=== PATIENT | female | born 1965 | race Caucasian/White ===

== ENCOUNTER 2016-10-02 08:44 | Emergency (ER) | payer MEDICARE, OTHER ==
[2016-10-02 09:02] VITALS: BP 119/68
[2016-10-02] MEDS ORDERED: MORPHINE SULFATE 4 MG/ML SYRG ONE (09:29)
[2016-10-02 09:30] LABS: Hematocrit 39.6 % (37.0-47.0); Hemoglobin 13.2 gm/dL (12.5-16.0); Mean Cell Volume 90.2 fl (78-100); Mean Corpuscular Hemoglobin 30.1 pg (27-31); Mean Corpuscular Hgb Conc 33.3 g/dl (32-36); Mean Platelet Volume 10.1 fl (6.0-9.5); Neutrophil # 4.2 K/mm3 (1.3-6.0); Platelet Count 287 K/mm3 (150-450); Red Blood Count 4.39 M/mm3 (4.2-5.4); Red Cell Distribution Width 12.9 % (11.5-14.0); White Blood Count 6.9 K/mm3 (4.0-10.5)
[2016-10-02] MEDS: MORPHINE SULFATE 4 MG/ML SYRG IM ONE (09:32)
[2016-10-02 09:43] LABS: Albumin * 3.9 gm/dl (3.4-5.0); BUN/Creatinine Ratio 16.7 (9.0-21.6); Bilirubin, Total 0.3 mg/dL (0.0-1.1); Ca. Corrected For Albumin 8.8 mg/dL (8.4-10.2); Carbon Dioxide 29.6 mmol/L (24-32.6); Potassium 3.6 mmol/L (3.4-4.6); Total Protein 8.2 gm/dL (6.2-8.2)
--- NOTE | 2016-10-02 09:58 | ERNOTE ---
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 methocarbamol Adverse Reaction (Mild, Verified 10/02/16 09:02) RASH Home Medications: HOME MEDICATIONS Venlafaxine HCl [Effexor Xr] 150 mg PO DAILY 01/02/14 [Last Taken 03/05/14] Pantoprazole Sodium [Protonix] 40 mg PO DAILY 06/03/15 [Last Taken Unknown] Torsemide [Demadex] 40 mg PO DAILY 06/03/15 [Last Taken Unknown] Aspirin 81 mg PO DAILY 01/03/16 [Last Taken Unknown] Atorvastatin Calcium [Lipitor] 40 mg PO DAILY 01/03/16 [Last Taken Unknown] HYDROcodone/ACETAMINOPHEN [[place] 5-325] 1 tab PO Q4H PRN 01/03/16 [Last Taken Unknown] Levothyroxine Sodium [Synthroid] 88 mcg PO DAILY 01/03/16 [Last Taken Unknown] hydrOXYzine PAMOATE [Hydroxyzine Pamoate] 100 mg PO TID 06/25/16 [Last Taken Unknown] Lurasidone HCl [Latuda] 20 mg PO DAILY 07/29/16 [Last Taken Unknown] Narrative: Patient presents to the ED for bilateral thigh pain. She relates this has been increased over the last 2 days. SHe states chronic back pain. She states her thighs have not hurt like this before but then tells me she had x-rays for this pain at another hospital when I discuss x-rays with her. He denies pain below the knees. Denies acute focal N/T/W. Feels weak all over. No trauma, no fever. No abdominal pain, no vomiting. No loss of bowel or bladder control. No CP or SOB. Denies new medications. Timing: Reports: constant Quality/Severity: Reports: severe Location of pain: Reports: other - low back and milateral upper thighs. Activities at Onset: Reports: none Recent Injury?: Reports: no Possible Precipitating Factor: Reports: none Modifying Factors - (Worsens): Reports: other - nothign clearly worsens it Associated Symptoms: Reports: none - no clear weakness in the legs. Denies: fever/chills, constipation/incontinence, problems urinating Review of Systems - Review of Systems Constitutional: Absent: fever ENT: Present: no symptoms reported Respiratory: Absent: shortness of breath Cardiology: Absent: chest pain Gastrointestinal/Abdominal: Absent: abdominal pain Genitourinary: Absent: dysuria Musculoskeletal: Present: back pain Skin: Absent: rash Neurological: Absent: weakness - Patient's Past Medical History Patient History - Medical: Anxiety, Depression, GERD, Hypothyroidism Patient History - Cardiac/Respiratory: Valvular Heart Disease Patient History - Cancer: No Hx of Cancer Patient History - Surgical Procedures: Hysterectomy, Total Hip Replacement, T & A, Other Patient History - Other: None LMP (females 10-50): other - Family History Father Family History - Medical: Family History - Cardiac/Respiratory: COPD, Other Mother Family History - Medical: Family History - Cardiac/Respiratory: COPD, CVA/Stroke, TIA, Other - Social History Living Situations: other Does anyone smoke in the home?: Yes Smoking Status: Current every day smoker Have you smoked in the past 12 months: Yes Do you dip or chew tobacco: No Patient requests Smoking Cessation Consult: No Initiate information on Smoking Cessation: No Alcohol Use: none Drug Use: none - Immunizations Immunizations Up to Date: Yes Hx Pneumococcal Vaccination: Yes History of Influenza Vaccine: Yes Physical Exam - Physical Exam General Appearance: Present: alert, no apparent distress Eye Exam: Normal inspection: bilateral, PERRL: bilateral Ears, Nose, Throat: Present: normal ENT inspection Neck: Present: normal inspection Respiratory: Present: no respiratory distress Cardiovascular/Chest: Present: regular rate, rhythm, normal peripheral pulses Gastrointestinal/Abdominal: Present: normal bowel sounds, nontender, nondistended, soft Back Exam: Present: other - muscular tendenress bilateral low back paraspinal musculature. No vertebral tenderness.. Absent: CVA tenderness (R), CVA tenderness (L) Extremity Exam: Present: other - mild anterior thigh tenderness. No compartment syndrome. 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 Full LE strength and sensation. Patellar tendon reflexes equal and symmetric.. Absent: motor weakness Skin Exam: Absent: skin rash ED Progress - Results and Orders Patient's Lab Results:: I have reviewed the patient's lab results. - Vital Signs Patient's Vital Signs:: I have reviewed the patient's vital signs. Vital Signs: Vital Signs 10/02/16 08:53 Temperature 36.5 C Pulse Rate 101 H Respiratory 20 Rate Blood Pressure 119/68 O2 Sat by Pulse 97 Oximetry - Progress/Reassessment Chief Complaint: Back Pain Progress Note-Subjective: 10/02/16 09:56 patient left AMA while I was in with another patient. Labs pending. Also I did not get a chance for a rectal exam. No clear evidence of cauda equina syndrome or neuro deficit, no clear etiology based on initial eval. AMA Departure Clinical Impression: Leg pain, anterior - Departure Disposition: Against medical advice Condition: Stable Additional Instructions: You are leaving Against Medical Advice. Please return if you change your mind about completing your evaluation. See your primary doctor as soon as possible.
== END 2016-10-02 09:47 | disposition left against medical advice (07) ==
LOC: ER 08:44
DX: M79.652 Pain in left thigh (principal); M79.651 Pain in right thigh; Z90.710 Acquired absence of both cervix and uterus; Z96.649 Presence of unspecified artificial hip joint

== ENCOUNTER 2016-10-03 21:49 | Emergency (ER) | payer MEDICARE, OTHER ==
[2016-10-03 22:19] VITALS: BP 119/92
[2016-10-03] MEDS ORDERED: METHYLPREDNISOLONE ACETATE 80 MG/ML VIAL IM ONE (23:38)
[2016-10-03] MEDS ORDERED: DEXAMETHASONE SOD PHOSPHATE 10 MG/ML VIAL IM ONE (23:38)
--- NOTE | 2016-10-03 23:39 | ERNOTE ---
Back Pain ER HPI Presenting Symptoms: hx chronic back pain Time Seen by Provider: 10/03/16 23:09 Source: patient Immunizations: IMMUNIZATION HX Immunizations Up to Date Yes History of Influenza Vaccine Yes Hx Pneumococcal Vaccination Yes Allergies/Adverse Reactions: Allergies Sulfa (Sulfonamide Antibiotics) Allergy (Intermediate, Verified 10/03/16 22:19) FACE SWELLING Iodinated Contrast Media - IV Dye Adverse Reaction (Intermediate, Verified 10/03 22:19) SEVERE ITCHING ibuprofen Adverse Reaction (Mild, Verified 10/03/16 22:19) Other Pt states that chronic specialist told her not to take these because it leads to heart disease. methocarbamol Adverse Reaction (Mild, Verified 10/03/16 22:19) RASH Home Medications: HOME MEDICATIONS Venlafaxine HCl [Effexor Xr] 150 mg PO DAILY 01/02/14 [Last Taken 03/05/14] Pantoprazole Sodium [Protonix] 40 mg PO DAILY 06/03/15 [Last Taken Unknown] Torsemide [Demadex] 40 mg PO DAILY 06/03/15 [Last Taken Unknown] Aspirin 81 mg PO DAILY 01/03/16 [Last Taken Unknown] Atorvastatin Calcium [Lipitor] 40 mg PO DAILY 01/03/16 [Last Taken Unknown] Levothyroxine Sodium [Synthroid] 88 mcg PO DAILY 01/03/16 [Last Taken Unknown] hydrOXYzine PAMOATE [Hydroxyzine Pamoate] 100 mg PO TID 06/25/16 [Last Taken Unknown] Narrative: Pt states she has chronic back pain. Tonight she had worsening of her back pain while she was lying down. She states that she is not on any pain medications right now Timing: Reports: getting worse - tonight Quality/Severity: Reports: moderate, aching Location of pain: Reports: lower back, radiating to rt thigh/leg, radiating to lf thigh/leg - anterior to the knee bilateral Activities at Onset: Reports: other - lying down and states that she turned over and the twisting caused her pain Possible Precipitating Factor: Reports: none - twisting Modifying Factors - (Improves): Reports: nothing Modifying Factors - (Worsens): Reports: movement to left Associated Symptoms: Denies: problems urinating, difficulty walking Review of Systems - Review of Systems Constitutional: Present: no symptoms reported EYE: Present: no symptoms reported ENT: Present: no symptoms reported Respiratory: Present: no symptoms reported Cardiology: Present: no symptoms reported Gastrointestinal/Abdominal: Present: no symptoms reported Musculoskeletal: Present: See HPI Skin: Present: no symptoms reported Neurological: Present: tingling - Patient's Past Medical History Patient History - Medical: Anxiety, Chronic Pain, Depression, GERD, Hypothyroidism Patient History - Cardiac/Respiratory: Valvular Heart Disease Patient History - Cancer: No Hx of Cancer Patient History - Surgical Procedures: Hysterectomy, Total Hip Replacement, T & A, Other Patient History - Other: None - Family History Father Family History - Medical: Family History - Cardiac/Respiratory: COPD, Other Mother Family History - Medical: Family History - Cardiac/Respiratory: COPD, CVA/Stroke, TIA, Other - Social History Living Situations: home Does anyone smoke in the home?: Yes Smoking Status: Current every day smoker Alcohol Use: none Drug Use: none - Immunizations Immunizations Up to Date: Yes Hx Pneumococcal Vaccination: Yes History of Influenza Vaccine: Yes Physical Exam - Physical Exam General Appearance: Present: wd/wn, alert, no apparent distress Neck: Present: normal inspection, nontender, supple Respiratory: Present: no respiratory distress, no accessory muscle use Back Exam: Present: muscle spasm - left paraspinal muscles. Absent: CVA tenderness (R), CVA tenderness (L), vertebral tenderness Extremity Exam: Present: normal inspection, non-tender, no edema, normal range of motion Neurological Exam: Present: alert, oriented, normal mood/affect, no motor/ sensory deficits DTR: N=norm/NB=norm/brisk/A=abs/DD=dull/dimin/HC=hyperactive: Knee (R): Normal, Knee (L): Normal, Ankle (R): Normal, Ankle (L): Normal Skin Exam: Present: normal color, warm/dry ED Progress - Vital Signs Vital Signs: Vital Signs 10/03/16 22:15 Temperature 36.5 C Pulse Rate 70 Respiratory 18 Rate Blood Pressure 119/92 O2 Sat by Pulse 98 Oximetry - Progress/Reassessment Chief Complaint: Back Pain Departure Clinical Impression: Low back pain associated with a spinal disorder other than radiculopathy or spinal stenosis - Departure Disposition: Home Follow Up Needed Condition: Good Instructions: Facet Syndrome Additional Instructions: See your regular doctor as soon as possible. 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
[2016-10-03] MEDS ORDERED: METHYLPREDNISOLONE SOD SUCC/PF 40 MG/ML VIAL ONE (23:58)
[2016-10-03] MEDS ORDERED: DEXAMETHASONE SOD PHOSPHATE 10 MG/ML VIAL ONE (23:58)
[2016-10-04] MEDS ORDERED: METHYLPREDNISOLONE ACETATE 80 MG/ML VIAL ONE (00:02)
== END 2016-10-04 00:30 | disposition home or self-care (01) ==
LOC: ER 21:49
DX: M54.5 Low back pain (principal); Z72.0 Tobacco use

== ENCOUNTER 2016-10-29 20:36 | Emergency (ER) | payer MEDICARE, OTHER ==
[2016-10-29 20:44] VITALS: BP 133/75
[2016-10-29] MEDS ORDERED: KETOROLAC TROMETHAMINE 30 MG/ML VIAL IM ONE (20:54)
[2016-10-29] MEDS ORDERED: oxyCODONE HCL/ACETAMINOPHEN 1 TAB TABLET PO ONE (20:54)
[2016-10-29] MEDS ORDERED: ORPHENADRINE CITRATE 30 MG/ML VIAL IM ONE (20:54)
[2016-10-29] MEDS ORDERED: oxyCODONE HCL/ACETAMINOPHEN 1 TAB TABLET ONE (20:59)
[2016-10-29] MEDS ORDERED: KETOROLAC TROMETHAMINE 30 MG/ML VIAL ONE (21:00)
[2016-10-29] MEDS ORDERED: ORPHENADRINE CITRATE 30 MG/ML VIAL ONE (21:00)
--- OUTSIDE RECORDS SUMMARY | 2016-10-29 21:02 | XMS REPORT | Continuity of Care Document ---
:1965 Author Organization [facility] ([facility]) Address [place] [address] Phone [phone] Care Team Providers Name Role Phone Ana Sanches Primary Care Provider [phone] Source Comments This disclosure is being made pursuant to the Care Everywhere program, applicable federal and state laws, and may not contain all informaitonavailable regarding this patient.[facility] ([facility]) Active Allergies and Adverse Reactions Allergen Noted Date Severity Reactions Comments Iodinated Contrast Media - Oral And Iv Dye 02/13/2014 Rash Sulfa (Sulfonamide Antibiotics) 02/13/2014 Angioedema Current Medications Prescription Sig. Disp. Refills Start Date End Date Status aspirin 81 mg EC tablet Take 81 mg by Active mouth daily. venlafaxine 150 mg XR Take 75 mg by Active tablet mouth daily. pantoprazole 40 mg EC Take 40 mg by Active tablet mouth daily. FLUTICASONE 50 05/14/2014 Active mcg/Actuation nasal spray torsemide 10 mg tablet Take 10 mg by Active mouth daily. HYDROcodone-acetaminophe Take 1 Tab by Active n 5-325 mg per tablet mouth every 4 hours as needed. levothyroxine 88 mcg 11 11/05/2015 Active tablet lisinopril 5 mg tablet Take 5 mg by 11/03/2015 Active mouth daily. atorvastatin 40 mg Take 40 mg by 11 07/19/2016 Active tablet mouth daily. benztropine 0.5 mg Take 0.5 mg by 1 08/01/2016 Active tablet mouth 3 times daily. busPIRone 10 mg tablet Take 10 mg by 1 08/01/2016 Active mouth. hydrOXYzine pamoate 50 Take 50 mg by 1 08/01/2016 Active mg capsule mouth 3 times daily. metoPROLol succinate 25 Take 1 tablet 90 tablet 3 08/24/2016 Active mg XL tablet (25 mg total) by mouth daily. Active Problems Problem Noted Date Nonrheumatic aortic valve insufficiency 08/24/2016 Overview: mild Cardiomyopathy 08/09/2016 Hypothyroidism 11/10/2015 S/P radiofrequency ablation operation for arrhythmia 10/14/2014 Overview: PVC ablation in 10/2014 Chronic systolic heart failure 09/16/2014 Overview: Likely secondary to frequent PVC's Essential hypertension 09/16/2014 Hyperlipidemia 09/16/2014 PVC (premature ventricular contraction) 09/16/2014 Hip pain 02/13/2014 Resolved Problems Problem Noted Date Resolved Date Palpitations 09/30/2014 11/10/2015 Whole body pain 07/21/2014 09/16/2014 Knee pain 02/13/2014 11/10/2015 Most Recent Encounters Date Type Specialty Providers Description 09/15/2016 Telephone Heart and Vascular Lorraine Seals, Chief Comp: Results [facility] 09/03/2016 Telephone Heart and Vascular Emy Olivera MD 08/24/2016 Office Visit Heart and Vascular Vitor Feng Dx: Cardiomyopathy MD Shira (Primary Dx) 08/23/2016 Office Visit Heart and Vascular Crow Benitez, Dx: Cardiomyopathy (Primary Dx) Lorraine Seals, [facility] 08/15/2016 Telephone Cardiac Rehabilitation Vitor Feng Chief Comp: MD Shira Appointment Info 08/10/2016 Office Visit Heart and Vascular Aaron Almodovar Dx: Cardiomyopathy MD Martha (Primary Dx) Vitor Feng MD Immunizations Name Dates Previously Given Next Due Influenza, unspecified 07/14/2014 Pneumococcal, unspecified 06/13/2014 Social History Tobacco Use Types Packs/Day Years Used Date Light Tobacco Smoker Cigarettes 0.25 Smokeless Tobacco: Current User Alcohol Use Drinks/Week oz/Week Comments No Last Filed Vital Signs Vital Sign Reading Time Taken Blood Pressure 140/76 08/24/2016 2:21 PM 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 Pulse 68 08/24/2016 2:21 PM 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 Temperature 37 C (98.6 F) 10/15/2014 7:53 AM 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 Respiratory Rate 16 11/10/2015 10:38 AM 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 Height 1.651 m (5' 5") 08/10/2016 12:16 PM 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 Weight 71.215 kg (157 lb) 08/24/2016 2:21 PM 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 Body Mass Index 26.13 08/24/2016 2:21 PM 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 Oxygen Saturation 98% 11/10/2015 10:38 AM 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 Plan of Care Date Type Specialty Providers Description 12/28/2016 Appointment Heart and Vascular Vitor Feng, Chief Comp: Patient MD Reported Reason For [address] [place] [address] [phone] (Fax) Health Maintenance Due Date Last Done Comments HCV Screening 1965 Hepatitis B Vaccine (1 of 3 - Primary Series) 1965 Tdap Vaccine 1975 Lipid Disorder Screening 1982 MMR Vaccine 1982 Td Vaccine 1982 Pneumococcal Vaccine (1 of 1 - PPSV23) 1983 Cervical Cancer Screening 1994 Mammogram 2004 Colonoscopy 2014 Influenza Vaccine: Seasonal (#1) 04/04/2016 07/14/2014 Results from Last 3 Months Not on file
--- NOTE | 2016-10-29 21:09 | ERNOTE ---
Lower Extremity HPI - Narrative Date of Service: 10/29/16 - General Lower Extremities Pain: leg: bilateral - Pain on both legs since 3 days ago. Time Seen by Provider: 10/29/16 20:40 Source: patient Exam Limitations: no limitations - Immun/Allergies/Home Medications Immunizations: IMMUNIZATION HX Immunizations Up to Date Yes History of Influenza Vaccine Yes Hx Pneumococcal Vaccination Yes Allergies/Adverse Reactions: Allergies Allergy/AdvReac Type Severity Reaction Status Date / Time Sulfa (Sulfonamide Allergy Intermediate FACE Verified 10/03/16 22:19 Antibiotics) SWELLING Iodinated Contrast Media - AdvReac Intermediate SEVERE Verified 10/03/16 22:19 IV Dye ITCHING ibuprofen AdvReac Mild Other Verified 10/03/16 22:19 methocarbamol AdvReac Mild RASH Verified 10/03/16 22:19 Home Medications: HOME MEDICATIONS Venlafaxine HCl [Effexor Xr] 150 mg PO DAILY 01/02/14 [Last Taken 03/05/14] Pantoprazole Sodium [Protonix] 40 mg PO DAILY 06/03/15 [Last Taken Unknown] Torsemide [Demadex] 40 mg PO DAILY 06/03/15 [Last Taken Unknown] Aspirin 81 mg PO DAILY 01/03/16 [Last Taken Unknown] Atorvastatin Calcium [Lipitor] 40 mg PO DAILY 01/03/16 [Last Taken Unknown] Levothyroxine Sodium [Synthroid] 88 mcg PO DAILY 01/03/16 [Last Taken Unknown] hydrOXYzine PAMOATE [Hydroxyzine Pamoate] 100 mg PO TID 06/25/16 [Last Taken Unknown] ALPRAZolam [Xanax] 1 mg PO TID 10/29/16 [Last Taken Unknown] Orphenadrine Citrate [Norflex] 100 mg PO BID #10 tablet.sa 10/29/16 [Last Taken Unknown] oxyCODONE HCL/ACETAMINOPHEN [Percocet 5 MG/325 MG] 1 tab PO Q8H #5 tablet [Last Taken Unknown] - History of Present Illness Narrative: Patient comes due to the need of pain control of a pain that starts on the lower back and radiates to the lower legs. Patient has Hx of Back Surgery and Back Problems. Patient with no Hx of recent Tx. Patient denied any fall. Patient reported no documented fever, but believe a bronchitis is coming up. Patient with no loss of sphincters controls and no LOC. Occurred: other - 3 days ago Method of Injury: Reports: unknown. Denies: fell, twisted, direct blow, fainted , motor vehicle accident, assault, burn, incised, sports injury, no apparent injury Reason for Fall: Reports: other - no fall reported Loss of Consciousness: Reports: no loss of consciousness Modifying Factors - (Improves): Reports: other - nothing Modifying Factors - (Worsens): Reports: movement Associated Symptoms: Reports: weakness. Denies: snapping, popping sensation, dizzy/light headedness, headache, sensory loss, chest pain, vomiting/diarrhea, bowel/bladder problems, other injuries - on the lower legs area Other Injuries: Reports: none Subsequent Symptoms: Reports: numbness. Denies: motor loss, bowel/bladder problem Prior Treament: Reports: recently seen - Patient has a back specialist Review of Systems - Review of Systems Constitutional: Present: fever, malaise. Absent: diaphoresis, weakness, fatigue , weight loss EYE: Present: no symptoms reported ENT: Present: no symptoms reported Respiratory: Present: cough. Absent: shortness of breath Cardiology: Present: no symptoms reported Gastrointestinal/Abdominal: Present: no symptoms reported Genitourinary: Present: no symptoms reported Musculoskeletal: Present: muscle pain, other - Back Pain that radiates to the lower legs area. Skin: Present: no symptoms reported Neurological: Present: no symptoms reported Endocrine: Present: no symptoms reported Hematologic/Lymphatic: Present: no symptoms reported Psych: Present: anxiety. Absent: depressed All Other Systems: All systems neg except as marked - Patient's Past Medical History Patient History - Medical: Anxiety, Bipolar, Chronic Pain, Depression, GERD, Hypothyroidism, Other Patient History - Cardiac/Respiratory: Valvular Heart Disease Patient History - Cancer: No Hx of Cancer Patient History - Surgical Procedures: Hysterectomy, Total Hip Replacement, T & A, Other Patient History - Other: None - Family History Father Family History - Medical: Family History - Cardiac/Respiratory: COPD, Other Mother Family History - Medical: Family History - Cardiac/Respiratory: COPD, CVA/Stroke, TIA, Other - Social History Living Situations: home Abuse History: No History of abuse Psych History: Hx of Anxiety, Hx of Depression, Hx of Bipolar Disorder Does anyone smoke in the home?: Yes Smoking Status: Current every day smoker Patient requests Smoking Cessation Consult: No Initiate information on Smoking Cessation: No Alcohol Use: none Drug Use: none - Immunizations Immunizations Up to Date: Yes Hx Pneumococcal Vaccination: Yes History of Influenza Vaccine: Yes Physical Exam - Physical Exam General Appearance: Present: alert, no apparent distress, anxious - mild, thin. Absent: obese, irritable, sleeping/easy to arouse Eye Exam: Normal inspection: bilateral Ears, Nose, Throat: Present: normal ENT inspection, hearing grossly normal, normal pharynx Neck: Present: normal inspection, nontender Respiratory: Present: no respiratory distress, normal breath sounds, no accessory muscle use, chest nontender, lungs clear Cardiovascular/Chest: Present: regular rate, rhythm, no murmur, normal peripheral pulses Gastrointestinal/Abdominal: Present: normal bowel sounds, nontender, nondistended, soft, no organomegaly Back Exam: Present: normal inspection, no vertebral tenderness, muscle spasm - There is spasm on the lower back area. The pain is reproduced to palpation. Patient has sensation on both legs and has good pulses. Patient ROM on the back is limited due to pain.. Absent: CVA tenderness (R), CVA tenderness (L) Extremity Exam: Present: normal inspection, no edema, normal range of motion. Absent: calf tenderness, joint swelling Neurological Exam: Present: alert, oriented, normal mood/affect, no motor/ sensory deficits Skin Exam: Present: normal color, warm/dry. Absent: skin rash Lymphatic Exam: Present: no adenopathy ED Progress - Date and Time Seen: Date and Time: 10/29/16 21:04 Patient will be given pain control. Patient with Hx of back problems. Patient is considered to have sciatica. Patient with no fever and no sphincter loses at the moment. Patient denied any recent trauma. - Vital Signs Patient's Vital Signs:: I have reviewed the patient's vital signs. Vital Signs: Vital Signs 10/29/16 20:40 Temperature 36.4 C L Pulse Rate 85 Respiratory 20 Rate Blood Pressure 133/75 O2 Sat by Pulse 100 Oximetry - Progress/Reassessment Chief Complaint: Lower Extremity Pain/ Injury - Transfer of Care Expected Disposition: Discharge Departure Clinical Impression: Low back pain associated with a spinal disorder other than radiculopathy or spinal stenosis Back pain Qualifiers: Back pain location: low back pain Chronicity: unspecified Back pain laterality : unspecified Sciatica presence: with sciatica Sciatica laterality: bilateral sciatica Qualified Code(s): M54.42 - Lumbago with sciatica, left side; M54.41 - Lumbago with sciatica, right side - Departure Disposition: Home self-care Instructions: Back Pain, Adult, Muscle Cramps and Spasms, [id number] Additional Instructions: Please follow up with your Back Specialist and your Primary Care Provider Prescriptions: Orphenadrine Citrate [Norflex] 100 mg PO BID #10 tablet.sa oxyCODONE HCL/ACETAMINOPHEN [Percocet 5 MG/325 MG] 1 tab PO Q8H #5 tablet
== END 2016-10-29 21:14 | disposition home or self-care (01) ==
LOC: ER 20:36
DX: M54.42 Lumbago with sciatica, left side (principal); M54.41 Lumbago with sciatica, right side; Z72.0 Tobacco use; F41.8 Other specified anxiety disorders; K21.9 Gastro-esophageal reflux disease without esophagitis

== ENCOUNTER 2016-11-05 08:09 | Emergency (ER) | payer MEDICARE, OTHER ==
[2016-11-05] MEDS ORDERED: ORPHENADRINE CITRATE 30 MG/ML VIAL IM ONE (08:32)
[2016-11-05] MEDS ORDERED: oxyCODONE HCL/ACETAMINOPHEN 1 TAB TABLET PO ONE (08:32)
[2016-11-05] MEDS ORDERED: KETOROLAC TROMETHAMINE 30 MG/ML VIAL IM ONE (08:32)
[2016-11-05] MEDS ORDERED: KETOROLAC TROMETHAMINE 30 MG/ML VIAL ONE (08:34)
[2016-11-05] MEDS ORDERED: ORPHENADRINE CITRATE 30 MG/ML VIAL ONE (08:34)
[2016-11-05] MEDS ORDERED: oxyCODONE HCL/ACETAMINOPHEN 1 TAB TABLET ONE (09:21)
[2016-11-05 09:31] VITALS: BP 122/78
--- NOTE | 2016-11-05 09:58 | ERNOTE ---
Back Pain ER HPI Date of Service: 11/05/16 Presenting Symptoms: injury/pain to back Time Seen by Provider: 11/05/16 09:20 Source: patient Exam Limitations: no limitations Immunizations: IMMUNIZATION HX Immunizations Up to Date Yes History of Influenza Vaccine Yes Hx Pneumococcal Vaccination Yes Allergies/Adverse Reactions: Allergies Sulfa (Sulfonamide Antibiotics) Allergy (Intermediate, Verified 11/05/16 08:16) FACE SWELLING Iodinated Contrast Media - IV Dye Adverse Reaction (Intermediate, Verified 11/05 08:16) SEVERE ITCHING ibuprofen Adverse Reaction (Mild, Verified 11/05/16 08:16) Other Pt states that high pressure operator told her not to take these because it leads to heart disease. methocarbamol Adverse Reaction (Mild, Verified 11/05/16 08:16) RASH Home Medications: HOME MEDICATIONS Venlafaxine HCl [Effexor Xr] 150 mg PO DAILY 01/02/14 [Last Taken 03/05/14] Pantoprazole Sodium [Protonix] 40 mg PO DAILY 06/03/15 [Last Taken Unknown] Torsemide [Demadex] 40 mg PO DAILY 06/03/15 [Last Taken Unknown] Aspirin 81 mg PO DAILY 01/03/16 [Last Taken Unknown] Atorvastatin Calcium [Lipitor] 40 mg PO DAILY 01/03/16 [Last Taken Unknown] Levothyroxine Sodium [Synthroid] 88 mcg PO DAILY 01/03/16 [Last Taken Unknown] hydrOXYzine PAMOATE [Hydroxyzine Pamoate] 100 mg PO TID 06/25/16 [Last Taken Unknown] ALPRAZolam [Xanax] 1 mg PO TID 10/29/16 [Last Taken Unknown] Orphenadrine Citrate [Norflex] 100 mg PO BID #10 tablet.sa 10/29/16 [Last Taken Unknown] Orphenadrine Citrate [Norflex] 100 mg PO Q12H #14 tablet.sa 11/05/16 [Last Taken Unknown] oxyCODONE HCL/ACETAMINOPHEN [Percocet 5 MG/325 MG] 1 tab PO Q6H #20 tablet 11/05 [Last Taken Unknown] Narrative: Patient reported that on she felt and hurt her lower back area. Patient comes to the ER due to pain. Patient has Hx of Back pain and will be seen by specialist on Monday. Timing: Reports: constant Quality/Severity: Reports: severe Location of pain: Reports: lower back Activities at Onset: Reports: other - Fall Recent Injury?: Reports: yes Possible Precipitating Factor: Reports: fall/near fall Modifying Factors - (Improves): Reports: nothing Modifying Factors - (Worsens): Reports: supine position, upright position, movement to right, movement to left, movement flexion, cough/deep breaths Associated Symptoms: Denies: fever/chills, sweating, constipation/incontinence, nausea/vomiting, problems urinating, difficulty walking, lightheadedness, numbess/weakness in legs Prior Treament: Denies: recently seen Review of Systems - Review of Systems Constitutional: Present: no symptoms reported EYE: Present: no symptoms reported ENT: Present: no symptoms reported Respiratory: Present: no symptoms reported Cardiology: Present: no symptoms reported Gastrointestinal/Abdominal: Present: no symptoms reported Genitourinary: Present: no symptoms reported Musculoskeletal: Present: other - Back Pain, Limited ROM due to pain, no radiation of pain Skin: Present: no symptoms reported Neurological: Present: no symptoms reported Endocrine: Present: no symptoms reported Hematologic/Lymphatic: Present: no symptoms reported Psych: Present: no symptoms reported All Other Systems: All systems neg except as marked - Patient's Past Medical History Patient History - Medical: Anxiety, Bipolar, Chronic Pain, Depression, GERD, Hypothyroidism, Other Patient History - Cardiac/Respiratory: Valvular Heart Disease Patient History - Cancer: No Hx of Cancer Patient History - Surgical Procedures: Hysterectomy, Total Hip Replacement, T & A, Other Patient History - Other: None - Family History Father Family History - Medical: Family History - Cardiac/Respiratory: COPD, Other Mother Family History - Medical: Family History - Cardiac/Respiratory: COPD, CVA/Stroke, TIA, Other - Social History Living Situations: home Abuse History: No History of abuse Psych History: Hx of Anxiety, Hx of Depression, Hx of Bipolar Disorder Does anyone smoke in the home?: Yes Smoking Status: Current every day smoker Alcohol Use: none Drug Use: none - Immunizations Immunizations Up to Date: Yes Hx Pneumococcal Vaccination: Yes History of Influenza Vaccine: Yes Physical Exam - Physical Exam General Appearance: Present: wd/wn, alert, no apparent distress. Absent: obese , cachetic Eye Exam: Normal inspection: bilateral Ears, Nose, Throat: Present: normal ENT inspection Neck: Present: normal inspection Respiratory: Present: no respiratory distress Cardiovascular/Chest: Present: normal peripheral pulses Gastrointestinal/Abdominal: Absent: tenderness, distended, guarding, rebound Back Exam: Present: no CVA tenderness, decreased range of motion, muscle spasm - Bilateral lower back area. Absent: vertebral tenderness Extremity Exam: Present: normal inspection, normal range of motion Neurological Exam: Present: alert, oriented, normal mood/affect, no motor/ sensory deficits, sport internship II-XII nml as tested, normal cerebellar test Skin Exam: Present: normal color, warm/dry Lymphatic Exam: Present: no adenopathy ED Progress - Date and Time Seen: Date and Time: 11/05/16 09:52 Patient at the moment with no distress. Patient will be given pain control. No Fx found by radiologist on x-rays. - Vital Signs Patient's Vital Signs:: I have reviewed the patient's vital signs. Vital Signs: Vital Signs 11/05/16 11/05/16 08:12 09:30 Temperature 36.0 C L Pulse Rate 71 77 Respiratory 12 12 Rate Blood Pressure 122/65 122/78 O2 Sat by Pulse 99 98 Oximetry - X-Ray X-Ray #1 X-Ray: L-SPINE X-ray Comments: No Fx reported by Radiologist X-Ray #2 X-Ray: pelvis X-ray Comments: No Fx reported by Radiologist - Progress/Reassessment Chief Complaint: Back Pain Progress:: Improved - Transfer of Care Expected Disposition: Discharge Plan - Plan Plan: Patient is to follow with her back specialist or PCP. Pain management will be given to patient. Departure Clinical Impression: Muscle spasm Back pain Qualifiers: Back pain location: low back pain Chronicity: unspecified Back pain laterality : bilateral Sciatica presence: without sciatica Qualified Code(s): M54.5 - Low back pain - Departure Disposition: Home self-care Condition: Stable Instructions: Back Pain, Adult, Back Exercises, Muscle Cramps and Spasms, Easy- to-Read Additional Instructions: Please follow up with your Back Specialist on Monday and get your x-rays film for your appointment. Prescriptions: Orphenadrine Citrate [Norflex] 100 mg PO Q12H #14 tablet.sa oxyCODONE HCL/ACETAMINOPHEN [Percocet 5 MG/325 MG] 1 tab PO Q6H #20 tablet
--- OUTSIDE RECORDS SUMMARY | 2016-11-05 10:06 | XMS REPORT | Continuity of Care Document ---
:1965 Author Organization [facility] ([facility]) Address [place] [address] Phone [phone] Care Team Providers Name Role Phone Ana Sanches Primary Care Provider [phone] Source Comments This disclosure is being made pursuant to the Care Everywhere program, applicable federal and state laws, and may not contain all informaitonavailable regarding this patient.[facility] ([facility]) Active Allergies and Adverse Reactions Allergen Noted [...] and Vascular Lorraine Seals, Chief Comp: Results [facility] 09/03/2016 Telephone Heart and Vascular Emy Olivera MD 08/24/2016 Office Visit Heart and Vascular Vitor Feng Dx: Cardiomyopathy MD Shira (Primary Dx) 08/23/2016 Office Visit Heart and Vascular Crow Benitez, Dx: Cardiomyopathy (Primary Dx) Lorraine Seals, [facility] 08/15/2016 Telephone Cardiac Rehabilitation Vitor Feng Chief [...] Taken Blood Pressure 140/76 08/24/2016 2:21 PM TRADE ANALYST Pulse 68 08/24/2016 2:21 PM TRADE ANALYST Temperature 37 C (98.6 F) 10/15/2014 7:53 AM TRADE ANALYST Respiratory Rate 16 11/10/2015 10:38 AM TRADE ANALYST Height 1.651 m (5' 5") 08/10/2016 12:16 PM TRADE ANALYST Weight 71.215 kg (157 lb) 08/24/2016 2:21 PM TRADE ANALYST Body Mass Index 26.13 08/24/2016 2:21 PM TRADE ANALYST Oxygen Saturation 98% 11/10/2015 10:38 AM TRADE ANALYST Plan of Care Date Type Specialty Providers Description 12/28/2016 Appointment Heart and Vascular Vitor Feng, Chief Comp: Patient MD Reported Reason For [address] [place] [address] [phone] (Fax) Health Maintenance Due Date Last Done [...]
== END 2016-11-05 10:10 | disposition home or self-care (01) ==
LOC: ER 08:09
DX: M62.830 Muscle spasm of back (principal); M54.5 Low back pain; W19.XXXA Unspecified fall, initial encounter; F41.8 Other specified anxiety disorders; Z87.411 Personal history of vaginal dysplasia; Z72.0 Tobacco use; K21.9 Gastro-esophageal reflux disease without esophagitis

== ENCOUNTER 2016-11-12 23:16 | Emergency (ER) | payer MEDICARE, OTHER ==
[2016-11-12] MEDS ORDERED: KETOROLAC TROMETHAMINE 60 MG/2 ML VIAL IM ONE ×2 (23:46→23:47)
--- OUTSIDE RECORDS SUMMARY | 2016-11-12 23:51 | XMS REPORT | Continuity of Care Document ---
:1965 Author Organization [facility] ([facility]) Address [place] [address] Phone [phone] Care Team Providers Name Role Phone Ana Sanches Primary Care Provider [phone] Source Comments This disclosure is being made pursuant to the Care Everywhere program, applicable federal and state laws, and may not contain all informaitonavailable regarding this patient.[facility] ([facility]) Active Allergies and Adverse Reactions Allergen [...] Recent Encounters Date Type Specialty Providers Description 11/08/2016 Office Visit Heart and Vascular Aaron Almodovar Chief Comp: Patient N, MD Reported Reason For Visit 09/15/2016 Telephone Heart and Vascular Lorraine Seals, Chief Comp: Results [facility] 09/03/2016 Telephone Heart and Vascular Emy Olivera MD 08/24/2016 Office Visit Heart and Vascular Vitor Feng Dx: Cardiomyopathy MD Shira (Primary Dx) 08/23/2016 Office Visit Heart and Vascular Crow Benitez, Dx: Cardiomyopathy (Primary Dx) Lorraine Seals, [facility] 08/15/2016 Telephone Cardiac Rehabilitation Vitor Feng Chief Comp: MD Shira Appointment Info Immunizations Name Dates Previously Given Next Due Influenza, unspecified 07/14/2014 Pneumococcal, unspecified 06/13/2014 Social History Tobacco Use Types Packs/Day Years Used Date Light Tobacco Smoker Cigarettes 0.25 Smokeless Tobacco: Current User Alcohol Use Drinks/Week oz/Week Comments No Last Filed Vital Signs Vital Sign Reading Time Taken Blood Pressure 140/76 08/24/2016 2:21 PM OWNER/PHOTOGRAPHER Pulse 68 08/24/2016 2:21 PM OWNER/PHOTOGRAPHER Temperature 37 C (98.6 F) 10/15/2014 7:53 AM OWNER/PHOTOGRAPHER Respiratory Rate 16 11/10/2015 10:38 AM OWNER/PHOTOGRAPHER Height 1.651 m (5' 5") 08/10/2016 12:16 PM OWNER/PHOTOGRAPHER Weight 71.215 kg (157 lb) 08/24/2016 2:21 PM OWNER/PHOTOGRAPHER Body Mass Index 26.13 08/24/2016 2:21 PM OWNER/PHOTOGRAPHER Oxygen Saturation 98% 11/10/2015 10:38 AM OWNER/PHOTOGRAPHER Plan of Care Date Type Specialty Providers Description 12/28/2016 Appointment Heart and Vascular Vitor Feng, Chief Comp: Patient MD Reported Reason For [address] [place] [address] [phone] (Fax) Health Maintenance Due Date Last Done [...]
[2016-11-13] MEDS ORDERED: HYDROcodone/ACETAMINOPHEN 1 EACH TABLET PO ONE (00:25)
[2016-11-13] MEDS ORDERED: HYDROcodone/ACETAMINOPHEN 1 EACH TABLET ONE (00:25)
--- NOTE | 2016-11-13 00:25 | ERNOTE ---
Back Pain ER HPI Date of Service: 11/13/16 Source: patient Exam Limitations: no limitations Immunizations: IMMUNIZATION HX Immunizations Up to Date Yes History of Influenza Vaccine Yes Hx Pneumococcal Vaccination Yes Allergies/Adverse Reactions: Allergies Sulfa (Sulfonamide Antibiotics) Allergy (Intermediate, Verified 11/12/16 23:32) FACE SWELLING Iodinated Contrast Media - IV Dye Adverse Reaction (Intermediate, Verified 11/12 23:32) SEVERE ITCHING ibuprofen Adverse Reaction (Mild, Verified 11/12/16 23:32) Other Pt states that graduate research assistant told her not to take these because it leads to heart disease. methocarbamol Adverse Reaction (Mild, Verified 11/12/16 23:32) RASH Home Medications: HOME MEDICATIONS Venlafaxine HCl [Effexor Xr] 150 mg PO DAILY 01/02/14 [Last Taken 03/05/14] Pantoprazole Sodium [Protonix] 40 mg PO DAILY 06/03/15 [Last Taken Unknown] Torsemide [Demadex] 40 mg PO DAILY 06/03/15 [Last Taken Unknown] Aspirin 81 mg PO DAILY 01/03/16 [Last Taken Unknown] Atorvastatin Calcium [Lipitor] 40 mg PO DAILY 01/03/16 [Last Taken Unknown] hydrOXYzine PAMOATE [Hydroxyzine Pamoate] 100 mg PO TID 06/25/16 [Last Taken Unknown] ALPRAZolam [Xanax] 1 mg PO TID 10/29/16 [Last Taken Unknown] Orphenadrine Citrate [Norflex] 100 mg PO BID #10 tablet. 10/29/16 [Last Taken Unknown] Orphenadrine Citrate [Norflex] 100 mg PO Q12H #14 tablet. 11/05/16 [Last Taken Unknown] Levothyroxine Sodium [Tirosint] 75 mcg PO DAILY 11/12/16 [Last Taken Unknown] Cyclobenzaprine HCl [Flexeril] 10 mg PO TID PRN 7 Days 11/13/16 [Last Taken Unknown] Narrative: patient did alot of repetitive motion and lifting and rug shampooing today and has had low back pain all day. No radiation of pain. Pain is throbbing and severe. She is unable to move. Review of Systems - Review of Systems Constitutional: Present: no symptoms reported EYE: Present: no symptoms reported ENT: Present: no symptoms reported Respiratory: Present: no symptoms reported Cardiology: Present: no symptoms reported Gastrointestinal/Abdominal: Present: no symptoms reported Genitourinary: Present: no symptoms reported Musculoskeletal: Present: See HPI - Patient's Past Medical History Patient History - Medical: Anxiety, Bipolar, Chronic Pain, Depression, GERD, Hypothyroidism, Other Patient History - Cardiac/Respiratory: Valvular Heart Disease Patient History - Cancer: No Hx of Cancer Patient History - Surgical Procedures: Hysterectomy, Total Hip Replacement, T & A, Other Patient History - Other: None - Family History Father Family History - Medical: Family History - Cardiac/Respiratory: COPD, Other Mother Family History - Medical: Family History - Cardiac/Respiratory: COPD, CVA/Stroke, TIA, Other - Social History Living Situations: home Abuse History: No History of abuse Psych History: Hx of Anxiety, Hx of Depression, Hx of Bipolar Disorder Does anyone smoke in the home?: Yes Smoking Status: Current every day smoker Patient requests Smoking Cessation Consult: No Initiate information on Smoking Cessation: No Alcohol Use: none Drug Use: none - Immunizations Immunizations Up to Date: Yes Hx Pneumococcal Vaccination: Yes History of Influenza Vaccine: Yes Physical Exam - Physical Exam General Appearance: Present: mild distress Ears, Nose, Throat: Present: normal ENT inspection Neck: Present: normal inspection, nontender, supple Respiratory: Present: no respiratory distress, normal breath sounds Cardiovascular/Chest: Present: regular rate, rhythm, no murmur Back Exam: Present: other - pt is flexed at the waist. She has moderate spasm of paravertebral muscle group in lumbar region bilaterally. Neurologically she is intact. Extremity Exam: Present: normal inspection Neurological Exam: Present: alert, oriented, normal mood/affect ED Progress - Vital Signs Patient's Vital Signs:: I have reviewed the patient's vital signs. Vital Signs: Vital Signs 11/12/16 23:29 Temperature 37.2 C Pulse Rate 66 Respiratory 18 Rate Blood Pressure 132/78 O2 Sat by Pulse 96 Oximetry - Progress/Reassessment Chief Complaint: Back Pain Plan - Plan Plan: Toradol assisted in decreasing patient's pain Departure Clinical Impression: Muscle spasm - Departure Disposition: Home self-care Condition: Fair Instructions: Back Pain, Adult Prescriptions: Cyclobenzaprine HCl [Flexeril] 10 mg PO TID PRN 7 Days PRN Reason: Pain
[2016-11-13 00:44] VITALS: BP 128/74
== END 2016-11-13 00:30 | disposition home or self-care (01) ==
LOC: ER 23:16
DX: M62.830 Muscle spasm of back (principal); E03.9 Hypothyroidism, unspecified; F17.210 Nicotine dependence, cigarettes, uncomplicated; X50.3XXA Overexertion from repetitive movements, initial encounter; Y93.E3 Activity, vacuuming

== ENCOUNTER 2016-11-28 21:33 | Emergency (ER) | payer MEDICARE, OTHER ==
[2016-11-28 21:43] VITALS: BP 115/76
--- OUTSIDE RECORDS SUMMARY | 2016-11-28 22:53 | XMS REPORT | Continuity of Care Document ---
:1965 Author Organization [facility] ([facility]) Address [place] [address] Phone [phone] Care Team Providers Name Role Phone Ana Sanches Primary Care Provider [phone] Source Comments This disclosure is being made pursuant to the Care Everywhere program, applicable federal and state laws, and may not contain all informaitonavailable regarding this patient.[facility] ([facility]) Active Allergies and Adverse Reactions Allergen [...] Recent Encounters Date Type Specialty Providers Description 11/15/2016 Office Visit Heart and Vascular Aaron Almodovar, Chief Comp : Patient MD Reported Reason For Visit 11/08/2016 Office Visit Heart and Vascular Aaron Almodovar, Chief Comp : Patient MD Reported Reason For Visit 09/15/2016 Telephone Heart and Vascular Lorraine Seals ARNP Chief Comp: Results 09/03/2016 Telephone Heart and Vascular Emy Olivera MD Immunizations Name Dates Previously Given Next Due Influenza, unspecified 07/14/2014 Pneumococcal, unspecified 06/13/2014 Social History Tobacco Use Types Packs/Day Years Used Date Light Tobacco Smoker Cigarettes 0.25 Smokeless Tobacco: Current User Alcohol Use Drinks/Week oz/Week Comments No Last Filed Vital Signs Vital Sign Reading Time Taken Blood Pressure 140/76 08/24/2016 2:21 PM AIR QUALITY CHEMIST Pulse 68 08/24/2016 2:21 PM AIR QUALITY CHEMIST Temperature 37 C (98.6 F) 10/15/2014 7:53 AM AIR QUALITY CHEMIST Respiratory Rate 16 11/10/2015 10:38 AM AIR QUALITY CHEMIST Height 1.651 m (5' 5") 08/10/2016 12:16 PM AIR QUALITY CHEMIST Weight 71.215 kg (157 lb) 08/24/2016 2:21 PM AIR QUALITY CHEMIST Body Mass Index 26.13 08/24/2016 2:21 PM AIR QUALITY CHEMIST Oxygen Saturation 98% 11/10/2015 10:38 AM AIR QUALITY CHEMIST Plan of Care Date Type Specialty Providers Description 12/28/2016 Appointment Heart and Vascular Vitor Feng, Chief Comp: Patient MD Reported Reason For [address] [place] [address] [phone] (Fax) Health Maintenance Due Date Last Done Comments HCV Screening 1965 Hepatitis B Vaccine (1 of 3 1965 - Primary Series) Tdap Vaccine 1975 Lipid Disorder Screening 1982 MMR Vaccine 1982 Td Vaccine 1982 Pneumococcal Vaccine (1 of 1983 1 - PPSV23) Cervical Cancer Screening 1994 Mammogram 2004 Colonoscopy 2014 Influenza Vaccine: Seasonal Addressed 06/03/2016 (Completed Overridden with the outside [facility] intention of not or clinic), 07/14/2014 completing the topic Results from Last 3 Months Not on file
== END 2016-11-28 22:45 | disposition left against medical advice (07) ==
LOC: ER 21:33
DX: Z53.21 Procedure and treatment not carried out due to patient leaving prior to being seen by health care provider (principal)

== ENCOUNTER 2016-12-10 12:16 | Emergency (ER) | payer MEDICARE, OTHER ==
--- NOTE | 2016-12-10 12:36 | ERNOTE ---
<BoneOttoJet - Last Filed: 12/10/16 13:58> Back Pain ER HPI Presenting Symptoms: hx chronic back pain Time Seen by Provider: 12/10/16 12:34 Source: patient Exam Limitations: no limitations Immunizations: IMMUNIZATION HX Immunizations Up to Date Yes History of Influenza Vaccine Yes Hx Pneumococcal Vaccination Yes Allergies/Adverse Reactions: Allergies Sulfa (Sulfonamide Antibiotics) Allergy (Intermediate, Verified 12/10/16 12:42) FACE SWELLING Iodinated Contrast Media - Oral and [Iodinated Contrast Media - IV Dye] Adverse Reaction (Intermediate, Verified 12/10/16 12:42) SEVERE ITCHING ibuprofen Adverse Reaction (Mild, Verified 12/10/16 12:42) Other Pt states that learning and development consultant told her not to take these because it leads to heart disease. methocarbamol Adverse Reaction (Mild, Verified 12/10/16 12:42) RASH Home Medications: HOME MEDICATIONS Venlafaxine HCl [Effexor Xr] 150 mg PO DAILY 01/02/14 [Last Taken 03/05/14] Pantoprazole Sodium [Protonix] 40 mg PO DAILY 06/03/15 [Last Taken Unknown] Torsemide [Demadex] 40 mg PO DAILY 06/03/15 [Last Taken Unknown] Aspirin 81 mg PO DAILY 01/03/16 [Last Taken Unknown] ALPRAZolam [Xanax] 1 mg PO TID 10/29/16 [Last Taken Unknown] Levothyroxine Sodium [Tirosint] 75 mcg PO DAILY 11/12/16 [Last Taken Unknown] Metoprolol Succinate 25 mg PO DAILY 11/28/16 [Last Taken Unknown] Cyclobenzaprine HCl [Flexeril] 10 mg PO TID PRN #30 tab 12/10/16 [Last Taken Unknown] Narrative: 51-year-old female presents to the emergency room with right hip pain radiating in her buttock and down her leg. Patient has a history of this hip pain and has had an MRI she will see her orthopedic physician on Monday. Date (Duration): 12/10/16 Timing: Reports: constant Quality/Severity: Reports: moderate, cramping Location of pain: Reports: radiating to lf thigh/leg Body Front/Back Adult: 1 - pain Activities at Onset: Reports: none Recent Injury?: Reports: no Modifying Factors - (Improves): Reports: nothing Modifying Factors - (Worsens): Reports: movement flexion Associated Symptoms: Denies: fever/chills, sweating, constipation/incontinence, nausea/vomiting, problems urinating, difficulty walking, lightheadedness, numbess/weakness in legs Prior Treament: Reports: similar symptoms before Review of Systems - Review of Systems Constitutional: Present: no symptoms reported, See HPI EYE: Present: no symptoms reported ENT: Present: no symptoms reported Respiratory: Present: no symptoms reported Cardiology: Present: no symptoms reported Gastrointestinal/Abdominal: Present: no symptoms reported Genitourinary: Present: no symptoms reported Musculoskeletal: Present: back pain, muscle pain, muscle stiffness Skin: Present: no symptoms reported Neurological: Present: no symptoms reported Endocrine: Present: no symptoms reported Hematologic/Lymphatic: Present: no symptoms reported Psych: Present: no symptoms reported Physical Exam - Physical Exam Narrative: positive for pain with straight leg raise and internal rotation of right leg. Patient describers pain that comes and goes with her muscle spasm. General Appearance: Present: wd/wn, alert, no apparent distress Eye Exam: Normal inspection: bilateral Ears, Nose, Throat: Present: normal ENT inspection Neck: Present: normal inspection, nontender Respiratory: Present: no respiratory distress Cardiovascular/Chest: Present: regular rate, rhythm Peripheral Pulses: N=norm/S=strong/W=weak/B=bound/A=absent: Dorsalis-pedis (R): Normal, Dorsalis-pedis (L): Normal Gastrointestinal/Abdominal: Present: normal bowel sounds, soft Back Exam: Present: normal inspection Extremity Exam: Present: normal except -, decreased range of motion - right leg r/t back pain Neurological Exam: Present: alert, oriented, normal mood/affect Skin Exam: Present: normal color, warm/dry Lymphatic Exam: Present: no adenopathy ED Progress - Results and Orders Patient's Lab Results:: I have reviewed the patient's lab results. Results and Orders: negative UA, Positive UDS for benzo. patient stated to me that he has beenout of her meds for a while. unable to explain result to this practitioner - Vital Signs Patient's Vital Signs:: I have reviewed the patient's vital signs. Vital Signs: Vital Signs 12/10/16 12:21 Temperature 36.7 C Pulse Rate 79 Respiratory 16 Rate Blood Pressure 119/75 O2 Sat by Pulse 97 Oximetry - Progress/Reassessment Chief Complaint: Back Pain Progress:: Improved Progress Note-Subjective: 12/10/16 13:52 patient states she is feeling better after treatment and requesting to be discharged 12/10/16 13:52 Plan - Plan Plan: patient [facility] was blank, but patient has had several prescriptions for narcotics written at this hospital that did not show up on [facility]. patient states that she is out of her percocet. is very adamant about her receiving percocet to the point that he came out of the room and behind the nurses station to ask me for a script for her. Departure Clinical Impression: Muscle spasm Back pain Qualifiers: Back pain location: low back pain Chronicity: chronic Back pain laterality: right Sciatica presence: with sciatica Sciatica laterality: sciatica of right side Qualified Code(s): M54.41 - Lumbago with sciatica, right side - Departure Disposition: Home Follow Up Needed Condition: Stable Instructions: Back Pain, Adult, Sciatica, [id number] Additional Instructions: Continue your home medications as directed. Follow-up with her doctor on Monday related to MRI results. Return to the emergency room his pain is not able to be controlled by [id number] pain medications and prescribed medications. Apply ice or heat to affected area for pain relief. Prescriptions: Cyclobenzaprine HCl [Flexeril] 10 mg PO TID PRN #30 tab PRN Reason: MUSCLE SPASMS <David Roca - Last Filed: 12/13/16 11:51> Back Pain ER HPI Date of Service: 12/10/16 Immunizations: IMMUNIZATION HX Immunizations Up to Date Yes History of Influenza Vaccine Yes Hx Pneumococcal Vaccination Yes - Patient's Past Medical History Patient History - Medical: Anxiety, Bipolar, Chronic Pain, Depression, GERD, Hypothyroidism, Other Patient History - Cardiac/Respiratory: Valvular Heart Disease Patient History - Cancer: No Hx of Cancer Patient History - Surgical Procedures: Hysterectomy, Total Hip Replacement, T & A, Other Patient History - Other: None - Family History Father Family History - Medical: Family History - Cardiac/Respiratory: COPD, Other Mother Family History - Medical: Family History - Cardiac/Respiratory: COPD, CVA/Stroke, TIA, Other - Social History Living Situations: home Abuse History: No History of abuse Psych History: Hx of Anxiety, Hx of Depression, Hx of Bipolar Disorder Does anyone smoke in the home?: Yes Smoking Status: Current every day smoker Have you smoked in the past 12 months: Yes Alcohol Use: none Drug Use: none - Immunizations Immunizations Up to Date: Yes Hx Pneumococcal Vaccination: Yes History of Influenza Vaccine: Yes ED Progress - Vital Signs Vital Signs: Vital Signs 12/10/16 12:21 Temperature 36.7 C Pulse Rate 79 Respiratory 16 Rate Blood Pressure 119/75 O2 Sat by Pulse 97 Oximetry - Progress/Reassessment Progress Note-Subjective: 12/13/16 11:50 This report was started by me in error, as I did not see this patient. Please disregard all documentation done under my name.
--- OUTSIDE RECORDS SUMMARY | 2016-12-10 12:41 | XMS REPORT | Continuity of Care Document ---
:1965 Author Organization [facility] ([facility]) [place] [address] Phone [phone] Care Team Providers Name Role Phone Ana Sanches Primary Care Provider [phone] Source Comments This disclosure is being made pursuant to the Care Everywhere program, applicable federal and state laws, and may not contain all informaitonavailable regarding this patient.[facility] ([facility]) Active Allergies and Adverse Reactions Allergen [...] Vascular Lorraine Seals ARNP Chief Comp: Results Immunizations Name Dates Previously Given Next Due Influenza, unspecified 07/14/2014 Pneumococcal, unspecified 06/13/2014 Social History Tobacco Use Types Packs/Day Years Used Date Light Tobacco Smoker Cigarettes 0.25 Smokeless Tobacco: Current User Alcohol Use Drinks/Week oz/Week Comments No Last Filed Vital Signs Vital Sign Reading Time Taken Blood Pressure 140/76 08/24/2016 2:21 PM OUTSIDE INSTALLATION MACHINIST Pulse 68 08/24/2016 2:21 PM OUTSIDE INSTALLATION MACHINIST Temperature 37 C (98.6 F) 10/15/2014 7:53 AM OUTSIDE INSTALLATION MACHINIST Respiratory Rate 16 11/10/2015 10:38 AM OUTSIDE INSTALLATION MACHINIST Height 1.651 m (5' 5") 08/10/2016 12:16 PM OUTSIDE INSTALLATION MACHINIST Weight 71.215 kg (157 lb) 08/24/2016 2:21 PM OUTSIDE INSTALLATION MACHINIST Body Mass Index 26.13 08/24/2016 2:21 PM OUTSIDE INSTALLATION MACHINIST Oxygen Saturation 98% 11/10/2015 10:38 AM OUTSIDE INSTALLATION MACHINIST Plan of Care Date Type Specialty Providers Description 12/28/2016 Appointment Heart and Vascular Vitor Feng, Chief Comp: Patient MD Reported Reason For [address] [place] [address] [phone] (Fax) Health Maintenance Due Date Last Done Comments HCV Screening 1965 Hepatitis B Vaccine (1 of 3 1965 - Primary Series) Tdap Vaccine 1975 Lipid Disorder Screening 1982 MMR Vaccine 1982 Td Vaccine 1982 Pneumococcal Vaccine (1 of 1983 1 - PPSV23) Cervical Cancer Screening 1994 Mammogram 2004 Colonoscopy 2014 Influenza Vaccine: Seasonal Addressed 06/03/2016 (Completed Overridden with the outside this hospital intention of not or clinic), 07/14/2014 completing the topic Results from Last 3 Months Not on file
[2016-12-10] MEDS ORDERED: KETOROLAC TROMETHAMINE 60 MG/2 ML VIAL IM ONE ×2 (12:48→13:27)
[2016-12-10] MEDS ORDERED: ORPHENADRINE CITRATE 30 MG/ML VIAL IM ONE (12:53)
[2016-12-10 13:20] LABS: Urine Bilirubin Negative (NEGATIVE); Urine Blood Negative /ul (NEGATIVE); Urine Ketone Negative (NEGATIVE); Urine Nitrite Negative (NEGATIVE); Urine Protein Negative (NEGATIVE); Urine Specific Gravity 1.025 SP.GR. (1.005-1.010); Urine Urobilinogen Normal (NORMAL); Urine pH 5.5 pH (5.0-7.0)
[2016-12-10 13:22] LABS: Urine Appearance Clear; Urine Color Yellow
[2016-12-10 13:27] LABS: Urine Bacteria TRACE; Urine RBC TRACE /hpf (0-5); Urine WBC TRACE /hpf (0-5)
[2016-12-10] MEDS ORDERED: ORPHENADRINE CITRATE 30 MG/ML VIAL ONE (13:27)
[2016-12-10 13:33] LABS: Cocaine Ur Negative (NEGATIVE); Urine Barbiturate Negative (NEGATIVE); Urine Benzodiazepines Positive (NEGATIVE); Urine Opiates Negative (NEGATIVE); Urine PCP Negative (NEGATIVE); Urine THC Negative (NEGATIVE)
[2016-12-10 14:09] VITALS: BP 94/71
== END 2016-12-10 14:09 | disposition home or self-care (01) ==
LOC: ER 12:16
DX: M62.838 Other muscle spasm (principal); M54.41 Lumbago with sciatica, right side; Z72.0 Tobacco use; F41.8 Other specified anxiety disorders; F31.70 Bipolar disorder, currently in remission, most recent episode unspecified

== ENCOUNTER 2017-02-01 07:49 | Emergency (ER) | payer MEDICARE, OTHER ==
[2017-02-01] MEDS ORDERED: KETOROLAC TROMETHAMINE 30 MG/ML VIAL ONE (08:34)
[2017-02-01] MEDS: KETOROLAC TROMETHAMINE 30 MG/ML VIAL IM ONE (08:37)
--- NOTE | 2017-02-01 08:38 | ERNOTE ---
Lower Extremity HPI - Narrative Date of Service: 02/01/17 - General Lower Extremities Pain: knee: left - pain Time Seen by Provider: 02/01/17 08:15 Source: patient Exam Limitations: physical impairment - Immun/Allergies/Home Medications Immunizations: IMMUNIZATION HX Immunizations Up to Date Yes History of Influenza Vaccine Yes Hx Pneumococcal Vaccination Yes Allergies/Adverse Reactions: Allergies Allergy/AdvReac Type Severity Reaction Status Date / Time Sulfa (Sulfonamide Allergy Intermediate FACE Verified 02/01/17 07:59 Antibiotics) SWELLING Iodinated Contrast Media - AdvReac Intermediate SEVERE Verified 02/01/17 07:59 Oral and ITCHING [Iodinated Contrast Media - IV Dye] ibuprofen AdvReac Mild Other Verified 02/01/17 07:59 methocarbamol AdvReac Mild RASH Verified 02/01/17 07:59 Home Medications: HOME MEDICATIONS Venlafaxine HCl [Effexor Xr] 150 mg PO DAILY 01/02/14 [Last Taken 03/05/14] Pantoprazole Sodium [Protonix] 40 mg PO DAILY 06/03/15 [Last Taken Unknown] Torsemide [Demadex] 40 mg PO DAILY 06/03/15 [Last Taken Unknown] Aspirin 81 mg PO DAILY 01/03/16 [Last Taken Unknown] ALPRAZolam [Xanax] 1 mg PO TID 10/29/16 [Last Taken Unknown] Levothyroxine Sodium [Tirosint] 75 mcg PO DAILY 11/12/16 [Last Taken Unknown] Metoprolol Succinate 25 mg PO DAILY 11/28/16 [Last Taken Unknown] Cyclobenzaprine HCl [Flexeril] 10 mg PO TID PRN #30 tab 12/10/16 [Last Taken Unknown] Acetaminophen with Codeine [Tylenol with Codeine #3 Tablet] 1 - 2 tab PO Q4H PRN #20 tab 02/01/17 [Last Taken Unknown] Ketorolac Tromethamine 30 mg IM ONCE #1 ml 02/01/17 [Last Taken Unknown] - History of Present Illness Narrative: Patient here for left knee pain, sustained fall last night on to hard surface, Date (Duration): 01/31/17 Time (Timing): 08:36 Occurred: yesterday Location of Incident: home Method of Injury: Reports: fell, direct blow Reason for Fall: Reports: other - trying to avoid injury to dog Associated Symptoms: Reports: other injuries - increased pain Subsequent Symptoms: Reports: other - pain Prior Treament: Reports: other - denies prior injury or knee problems Review of Systems - Narrative Narrative: fall on to left knee, also complains of right lower rib pain, denies injury to area. - Review of Systems Constitutional: Present: no symptoms reported EYE: Present: no symptoms reported ENT: Present: no symptoms reported Respiratory: Present: other - pain with respiration Gastrointestinal/Abdominal: Present: no symptoms reported Genitourinary: Present: no symptoms reported Musculoskeletal: Present: joint swelling, other - left knee and right lower ribs Neurological: Present: no symptoms reported Endocrine: Present: no symptoms reported Hematologic/Lymphatic: Present: no symptoms reported Psych: Present: no symptoms reported All Other Systems: All systems neg except as marked - Patient's Past Medical History Patient History - Medical: Anxiety, Bipolar, Chronic Pain, Depression, GERD, Hypothyroidism, Other Patient History - Cardiac/Respiratory: Valvular Heart Disease Patient History - Cancer: No Hx of Cancer Patient History - Surgical Procedures: Hysterectomy, Total Hip Replacement, T & A, Other Patient History - Other: None - Family History Father Family History - Medical: Family History - Cardiac/Respiratory: COPD, Other Mother Family History - Medical: Family History - Cardiac/Respiratory: COPD, CVA/Stroke, TIA, Other - Social History Living Situations: home Abuse History: No History of abuse Psych History: Hx of Anxiety, Hx of Depression, Hx of Bipolar Disorder Does anyone smoke in the home?: Yes Smoking Status: Current every day smoker Have you smoked in the past 12 months: Yes Do you dip or chew tobacco: No Alcohol Use: none Drug Use: none - Immunizations Immunizations Up to Date: Yes Hx Pneumococcal Vaccination: Yes History of Influenza Vaccine: Yes Physical Exam - Physical Exam General Appearance: Present: wd/wn, alert, no apparent distress Eye Exam: Normal inspection: bilateral, PERRL: bilateral, EOMI: bilateral Ears, Nose, Throat: Present: normal ENT inspection, normal pharynx Neck: Present: normal inspection, nontender Respiratory: Present: no respiratory distress, normal breath sounds Cardiovascular/Chest: Present: regular rate, rhythm, no murmur Peripheral Pulses: N=norm/S=strong/W=weak/B=bound/A=absent: Carotid (R): Normal , Carotid (L): Normal Gastrointestinal/Abdominal: Present: normal bowel sounds, nontender, nondistended, soft, no organomegaly Rectal Exam: Present: deferred Back Exam: Present: normal inspection, normal range of motion, no CVA tenderness , no vertebral tenderness, other - right lower rib pain DTR: N=norm/NB=norm/brisk/A=abs/DD=dull/dimin/HC=hyperactive: Knee (R): Normal, Knee (L): Normal Skin Exam: Present: normal color, warm/dry Lymphatic Exam: Present: no adenopathy ED Progress - Date and Time Seen: Date and Time: 02/01/17 08:44 added 2 vw chest re: right lower rib pain, no trauma 02/01/17 09:18 Patient reports minimal effect with toradol now. Declince ENRIQUE wrap, informed patient of results of xray Discussed analgesics can't take nsaid due to hx of heart ablation and hx of heart failure, decided rx for tylenol with codeine for pain - Vital Signs Patient's Vital Signs:: I have reviewed the patient's vital signs. Vital Signs: Vital Signs 02/01/17 07:53 Temperature 36.8 C Pulse Rate 80 Respiratory 16 Rate Blood Pressure 119/85 O2 Sat by Pulse 97 Oximetry - X-Ray X-Ray #1 X-Ray: chest Interpretation: Interp. by me, Reviewed by me - normal no heart failure, or cardiopulm disease process X-Ray #2 X-Ray: knee Interpretation: Interp. 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 - Progress/Reassessment Chief Complaint: Lower Extremity Pain/ Injury Plan - Plan Plan: Discharge to home RICE for knee pain, For chest wall pain Tylenol # 3 short term Close followup with Primary in [place] Departure Clinical Impression: Chest wall discomfort Knee contusion Qualifiers: Encounter type: initial encounter Laterality: left Qualified Code(s): S80.02XA - Contusion of left knee, initial encounter - Departure Disposition: Home Follow Up Needed Condition: Good Instructions: Knee Pain, RICE for Routine Care of Injuries, [id number], Chest Wall Pain, Uper-wu-Aigl Additional Instructions: Follow up with primary PCP in [place] Prescriptions: Acetaminophen with Codeine [Tylenol with Codeine #3 Tablet] 1 - 2 tab PO Q4H PRN #20 tab PRN Reason: Pain Ketorolac Tromethamine 30 mg IM ONCE #1 ml
[2017-02-01 08:52] VITALS: BP 128/70
--- OUTSIDE RECORDS SUMMARY | 2017-02-01 11:30 | XMS REPORT | Continuity of Care Document ---
:1965 Author Organization [email or web address] [place] [address] Care Team Providers Name Role Phone Unavailable Primary Care Provider Unavailable Source Comments This disclosure is being made pursuant to the [employer] program and maynot contain all information available regarding this patient.[email or web address] Active Allergies and Adverse Reactions Allergen Noted Date Severity Reactions Comments Methocarbamol 01/31/2017 Unknown Nsaids 01/31/2017 Unknown Sulfa Antibiotics 01/31/2017 Unknown Vicodin 01/31/2017 Low Palpitations Current Medications Be aware that medications may not be up to date as of this document. Alwaysverify current medications with the patient. Prescription Sig. Disp. Refills Start Date End Date Status aspirin 81 MG EC tablet Take 81 mg by Active mouth every other day. ALPRAZolam (XANAX) 1 MG Take 1 mg by Active tablet mouth 3 (three) times daily. BUSPIRONE HCL PO Take by mouth. Active Cholecalciferol (VITAMIN Take 1,000 Units Active D-3) 1000 units CAPS by mouth daily. capsule atorvastatin (LIPITOR) 40 Take 40 mg by Active MG tablet mouth every evening. HYDROcodone-acetaminophen Take 1 tablet by Active (NORCO) 5-325 MG per tablet mouth every 6 (six) hours as needed for Pain. hydrOXYzine (ATARAX) 50 MG Take 50 mg by Active tablet mouth 3 (three) times daily as needed for Anxiety. pantoprazole (PROTONIX) 40 Take 40 mg by Active MG tablet mouth daily. venlafaxine HCl Take 37.5 mg by Active (EFFEXOR-XR) 37.5 MG 24 hr mouth daily. capsule Active Problems Not on file Most Recent Encounters Date Type Specialty Providers Description 01/31/2017 Abstract Orthopedic Surgery Deneen Ocampo, RN Social History Tobacco Use Types Packs/Day Years Used Date Current Every Day Smoker Alcohol Use Drinks/Week oz/Week Comments No Plan of Care Health Maintenance Due Date Last Done Comments Pneumococcal Medium Risk 19-64 yo (1 of 1 - PPSV23) 1983 Tetanus/Pertussis (1 - Tdap) 1983 Pap Smear 1985 Colonoscopy 2014 Mammogram 2014 Well Adult Visit 2014 Influenza Immunization (#1) 2016 Results from Last 3 Months Not on file
--- OUTSIDE RECORDS SUMMARY | 2017-02-01 11:30 | XMS REPORT | Continuity of Care Document ---
:1965 Author Organization [facility] ([facility]) Address [address] [place] [address] Phone [phone] Care Team Providers Name Role Phone Keanu Caceres Primary Care Provider [phone] Source Comments This disclosure is being made pursuant to the Care Everywhere program, applicable federal and state laws, and may not contain all informaitonavailable regarding this patient.[facility] ([facility]) Active Allergies and Adverse Reactions Allergen Noted Date Severity Reactions Comments Iodinated Contrast Media - Oral And Iv Dye 02/13/2014 Rash Sulfa (Sulfonamide Antibiotics) 02/13/2014 Angioedema Current Medications Prescription Sig. Disp. Refills Start Date End Date Status aspirin 81 mg EC tablet Take 81 mg by Active mouth daily. venlafaxine 150 mg XR Take 150 mg by Active tablet mouth daily. pantoprazole 40 mg EC Take 40 mg by Active tablet mouth daily. torsemide 10 mg tablet Take 10 mg by Active mouth daily. lisinopril 5 mg tablet Take 5 mg by 11 11/03/2015 Active mouth daily. atorvastatin 40 mg Take 40 mg by 11 07/19/2016 Active tablet mouth daily. benztropine 0.5 mg Take 0.5 mg by 1 08/01/2016 Active tablet mouth 3 times daily. metoPROLol succinate 25 Take 1 tablet 90 tablet 3 08/24/2016 Active mg XL tablet (25 mg total) by mouth daily. levothyroxine 50 mcg Take 50 mcg by 5 12/23/2016 Active tablet mouth daily. ALPRAZolam 1 mg tablet Take 1 mg by 3 12/25/2016 Active mouth 3 times daily. baclofen 10 mg tablet Take 10 mg by 0 12/12/2016 Active mouth at bedtime. Active Problems Problem Noted Date Nonrheumatic aortic [...] Recent Encounters Date Type Specialty Providers Description 12/28/2016 Office Visit Heart and Vascular Vitor Feng, Dx: Cardiomyopathy (Primary Dx) 11/15/2016 Office Visit Heart and Vascular Aaron Almodovar Chief Comp: Patient MD Martha Reported Reason For Visit 11/08/2016 Office Visit Heart and Vascular Aaron Almodovar Chief Comp: Patient MD Martha Reported Reason For Visit Immunizations Name Dates Previously Given Next Due Influenza, unspecified 07/14/2014 Pneumococcal, unspecified 06/13/2014 Social History Tobacco Use Types Packs/Day Years Used Date Current Every Day Smoker Cigarettes 2 Smokeless Tobacco: Never Used Alcohol Use Drinks/Week oz/Week Comments No Last Filed Vital Signs Vital Sign Reading Time Taken Blood Pressure 122/78 12/28/2016 1:47 PM CDT Pulse 70 12/28/2016 1:47 PM CDT Temperature 37 C (98.6 F) 10/15/2014 7:53 AM PUBLIC POLICY COORDINATOR Respiratory Rate 16 11/10/2015 10:38 AM PUBLIC POLICY COORDINATOR Height 1.651 m (5' 5") 08/10/2016 12:16 PM PUBLIC POLICY COORDINATOR Weight 63.504 kg (140 lb) 12/28/2016 1:47 PM CDT Body Mass Index 23.3 12/28/2016 1:47 PM CDT Oxygen Saturation 98% 11/10/2015 10:38 AM PUBLIC POLICY COORDINATOR Plan of Care Date Type Specialty Providers Description 07/12/2017 Appointment Heart and Vascular Vitor Feng, Chief Comp: Patient Reported Reason For [address] [place] [address] [phone] (Fax) Health Maintenance Due Date Last Done [...]
== END 2017-02-01 09:32 | disposition home or self-care (01) ==
LOC: ER 07:49
DX: R07.89 Other chest pain (principal); S80.02XA Contusion of left knee, initial encounter; F17.210 Nicotine dependence, cigarettes, uncomplicated; W19.XXXA Unspecified fall, initial encounter; Y92.009 Unspecified place in unspecified non-institutional (private) residence as the place of occurrence of the external cause

== ENCOUNTER 2017-02-18 12:14 | Emergency (ER) | payer MEDICARE, OTHER ==
--- OUTSIDE RECORDS SUMMARY | 2017-02-18 13:15 | XMS REPORT | Continuity of Care Document ---
:1965 Author Organization [employer] [place] [address] Care Team Providers Name Role Phone Keanu Caceres Primary Care Provider [phone] Source Comments This disclosure is being made pursuant to the [employer] program and maynot contain all information available regarding this patient.[employer] Active Allergies and Adverse Reactions Allergen Noted Date Severity Reactions Comments Iodinated Diagnostic Agents 02/06/2017 Low Rash Methocarbamol 01/31/2017 Unknown Nsaids 01/31/2017 Unknown Sulfa Antibiotics 01/31/2017 Unknown Current Medications Be aware that medications may not be up to date as of this document. Alwaysverify current medications with the patient. Prescription Sig. Disp. Refills Start Date End Date Status aspirin 81 MG EC tablet Take 81 mg by Active mouth every other day. ALPRAZolam (XANAX) 1 MG Take 1 mg by Active tablet mouth 3 (three) times daily. Cholecalciferol Take 1,000 Active (VITAMIN D-3) 1000 Units by units CAPS capsule mouth daily. atorvastatin (LIPITOR) Take 40 mg by Active 40 MG tablet mouth every evening. pantoprazole (PROTONIX) Take 40 mg by Active 40 MG tablet mouth daily. venlafaxine HCl Take 37.5 mg Active (EFFEXOR-XR) 37.5 MG 24 by mouth hr capsule daily. baclofen (LIORESAL) 10 Take 10 mg by 12/12/2016 Active MG tablet mouth nightly. levothyroxine Take 50 mcg 12/23/2016 Active (SYNTHROID, LEVOTHROID) by mouth 50 MCG tablet daily. metoprolol succinate Take 25 mg by 08/24/2016 Active (TOPROL-XL) 25 MG 24 hr mouth daily. tablet torsemide (DEMADEX) 10 Take 10 mg by Active MG tablet mouth daily. BUSPIRONE HCL PO Take by 02/06/2017 Discontinued mouth. HYDROcodone-acetaminoph Take 1 tablet 02/06/2017 Discontinued en (NORCO) 5-325 MG per by mouth tablet every 6 (six) hours as needed for Pain. hydrOXYzine (ATARAX) 50 Take 50 mg by 02/06/2017 Discontinued MG tablet mouth 3 (three) times daily as needed for Anxiety. Hospital, Clinic, or Other Ordered Dose Route Frequency Start Date End Date Status Facility Administered Medication triamcinolone acetonide 40mg IX Once 02/06/2017 02/06/2017 Ended (KENALOG-40) injection Active Problems Problem Noted Date Trochanteric bursitis of both hips 02/06/2017 History of hip replacement, total 02/06/2017 Rupture of ulnar collateral ligament of thumb 02/06/2017 Most Recent Encounters Date Type Specialty Providers Description 02/06/2017 Office Visit Orthopedic Surgery Celio Cruz, Trochanteric bursitis MD of both hips (Primary Dx); History of hip replacement, total, left; Rupture of ulnar collateral ligament of thumb, left, sequela 01/31/2017 Abstract Orthopedic Surgery Deneen Ocampo, RN Social History Tobacco Use Types Packs/Day Years Used Date Current Every Day Smoker 0.5 Alcohol Use Drinks/Week oz/Week Comments No Last Filed Vital Signs Vital Sign Reading Time Taken Blood Pressure 131/74 02/06/2017 1:28 PM CDT Pulse 65 02/06/2017 1:28 PM CDT Temperature 35.4 C (95.7 F) 02/06/2017 1:28 PM CDT Respiratory Rate - - Height 1.651 m (5' 5") 02/06/2017 1:28 PM CDT Weight 64.32 kg (141 lb 12.8 oz) 02/06/2017 1:28 PM CDT Body Mass Index 23.6 02/06/2017 1:28 PM CDT Oxygen Saturation 99% 02/06/2017 1:28 PM CDT Plan of Care Health Maintenance Due Date Last Done Comments Hepatitis C Screening 1982 Pneumococcal Medium Risk 19-64 yo (1 of 1 - PPSV23) 1983 Tetanus/Pertussis (1 - Tdap) 1983 Pap Smear 1985 Colonoscopy 2014 Mammogram 2014 Well Adult Visit 2014 Influenza Immunization (#1) 2016 Results from Last 3 Months Not on file
--- OUTSIDE RECORDS SUMMARY | 2017-02-18 13:16 | XMS REPORT | Continuity of Care Document ---
:1965 Author Organization [facility] ([facility]) Address [place] [address] Phone [phone] Care Team Providers Name Role Phone Keanu Caceres Primary Care Provider [phone] Source Comments This disclosure is being made pursuant to the Care Everywhere program, applicable federal and state laws, and may not contain all informaitonavailable regarding this patient.[facility] ([facility]) Active Allergies and Adverse Reactions Allergen Noted Date Severity Reactions Comments Iodinated Contrast- Oral And Iv Dye 02/13/2014 Rash Sulfa [...] [facility] Vitor Feng, Dx: Cardiomyopathy MD (Primary Dx) Immunizations Name Dates Previously Given Next Due [...] 37 C (98.6 F) 10/15/2014 7:53 AM [employer]PER[employer] Respiratory Rate 16 11/10/2015 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
[2017-02-18] MEDS ORDERED: DIAZEPAM 5 MG/ML SYRG IM ONE (13:23)
[2017-02-18] MEDS ORDERED: KETOROLAC TROMETHAMINE 60 MG/2 ML VIAL IM ONE ×2 (13:23→13:26)
[2017-02-18] MEDS ORDERED: DIAZEPAM 5 MG/ML SYRG ONE (13:26)
--- NOTE | 2017-02-18 13:26 | ERNOTE ---
Back Pain ER HPI Date of Service: 02/18/17 Presenting Symptoms: hx chronic back pain, other - Hip pain Time Seen by Provider: 02/18/17 13:07 Source: patient, family, RN notes reviewed Exam Limitations: no limitations Immunizations: IMMUNIZATION HX Immunizations Up to Date Yes History of Influenza Vaccine Yes Hx Pneumococcal Vaccination Yes Allergies/Adverse Reactions: Allergies Sulfa (Sulfonamide Antibiotics) Allergy (Intermediate, Verified 02/18/17 12:22) FACE SWELLING Iodinated Contrast Media - Oral and [Iodinated Contrast Media - IV Dye] Adverse Reaction (Intermediate, Verified 02/18/17 12:22) SEVERE ITCHING ibuprofen Adverse Reaction (Mild, Verified 02/18/17 12:22) Other Pt states that news correspondent told her not to take these because it leads to heart disease. methocarbamol Adverse Reaction (Mild, Verified 02/18/17 12:22) RASH Home Medications: HOME MEDICATIONS Venlafaxine HCl [Effexor Xr] 150 mg PO DAILY 01/02/14 [Last Taken 03/05/14] Pantoprazole Sodium [Protonix] 40 mg PO DAILY 06/03/15 [Last Taken Unknown] Torsemide [Demadex] 40 mg PO DAILY 06/03/15 [Last Taken Unknown] Aspirin 81 mg PO DAILY 01/03/16 [Last Taken Unknown] Levothyroxine Sodium [Tirosint] 75 mcg PO DAILY 11/12/16 [Last Taken Unknown] Metoprolol Succinate 25 mg PO DAILY 11/28/16 [Last Taken Unknown] ALPRAZolam [Xanax] 1 mg PO TID 02/18/17 [Last Taken Unknown] Cyclobenzaprine HCl [Flexeril] 10 mg PO TID PRN #15 tab 02/18/17 [Last Taken Unknown] Narrative: 51 y/o female ambulatory to the ED for left hip pain that began 5 days ago while she was attempting to catch her dog. She has a prosthetic hip. She reports feeling a "pop" at the time. She states she has not been taking anything for her hip pain, she has just been "dealing with it." She also reports pain in her sacral region bilaterally that radiates across her buttocks. She has been seen here for her back pain several times in recent months. She believes that she has torn muscles in her hip. Date (Duration): 06/12/17 Timing: Reports: constant Quality/Severity: Reports: severe, aching Location of pain: Reports: lower back, radiating to rt thigh/leg, radiating to lf thigh/leg Recent Injury?: Reports: yes Possible Precipitating Factor: Reports: turning/bending Modifying Factors - (Improves): Reports: nothing Modifying Factors - (Worsens): Reports: movement to right, movement to left, movement flexion Associated Symptoms: Denies: fever/chills, sweating, constipation/incontinence, nausea/vomiting, problems urinating, difficulty walking, numbess/weakness in legs Prior Treament: Reports: recently seen, similar symptoms before Review of Systems - Review of Systems Constitutional: Absent: fever, chills, decreased activity level EYE: Present: no symptoms reported ENT: Present: no symptoms reported Respiratory: Absent: shortness of breath, cough Cardiology: Absent: chest pain, edema Gastrointestinal/Abdominal: Absent: nausea, abdominal pain Genitourinary: Absent: dysuria, hematuria Musculoskeletal: Present: back pain, muscle pain, joint pain. Absent: joint swelling Skin: Absent: lesions, lumps, change in color Neurological: Absent: weakness, numbness, tingling Endocrine: Present: no symptoms reported Hematologic/Lymphatic: Present: no symptoms reported Psych: Present: no symptoms reported - Patient's Past Medical History Patient History - Medical: Anxiety, Bipolar, Chronic Pain, Depression, GERD, Hypothyroidism, Other Patient History - Cardiac/Respiratory: Valvular Heart Disease Patient History - Cancer: No Hx of Cancer Patient History - Surgical Procedures: Hysterectomy, Total Hip Replacement, T & A, Other Patient History - Other: None - Family History Father Family History - Medical: Family History - Cardiac/Respiratory: COPD, Other Mother Family History - Medical: Family History - Cardiac/Respiratory: COPD, CVA/Stroke, TIA, Other - Social History Living Situations: significant other Abuse History: No History of abuse Psych History: Hx of Anxiety, Hx of Depression, Hx of Bipolar Disorder Does anyone smoke in the home?: Yes Smoking Status: Current every day smoker Alcohol Use: none Drug Use: none - Immunizations Immunizations Up to Date: Yes Hx Pneumococcal Vaccination: Yes History of Influenza Vaccine: Yes Physical Exam - Physical Exam General Appearance: Present: wd/wn, alert, mild distress Respiratory: Present: no respiratory distress, normal breath sounds, no accessory muscle use, lungs clear Cardiovascular/Chest: Present: regular rate, rhythm, no murmur, normal peripheral pulses Back Exam: Present: normal range of motion, no CVA tenderness, no vertebral tenderness, other - Tenderness with palpation of bilateral sacral regions Extremity Exam: Present: normal inspection, normal range of motion, no edema, other - Diffuse tenderness with palpation of left hip region, no deformity, bears weight without difficulty Neurological Exam: Present: alert, oriented, normal mood/affect, no motor/ sensory deficits Skin Exam: Present: normal color, warm/dry ED Progress - Vital Signs Patient's Vital Signs:: I have reviewed the patient's vital signs. Vital Signs: Vital Signs 02/18/17 12:17 Temperature 36.8 C Pulse Rate 121 H Respiratory 16 Rate Blood Pressure 145/83 O2 Sat by Pulse 97 Oximetry - Progress/Reassessment Chief Complaint: Back Pain Progress:: Improved Plan - Plan Plan: Offered Toradol, patient states this works for her back pain when she is here but not her hip. Informed that I would not give her narcotics d/t duration and nature of problem as it is likely just muscle strain and not a fracture or dislocation of her hip. Agreeable to Toradol. Valium also given. Rx given for Flexeril, to take with Tylenol. Departure Clinical Impression: Hip pain, left - Departure Disposition: Home Follow Up Needed Condition: Stable Instructions: Hip Pain Additional Instructions: Heat to sore area Tylenol for pain Flexeril will cause drowsiness Follow up with your doctor if symptoms continue Prescriptions: Cyclobenzaprine HCl [Flexeril] 10 mg PO TID PRN #15 tab PRN Reason: MUSCLE SPASMS
[2017-02-18 13:47] VITALS: BP 123/83
== END 2017-02-18 13:43 | disposition home or self-care (01) ==
LOC: ER 12:14
DX: M25.552 Pain in left hip (principal); X58.XXXA Exposure to other specified factors, initial encounter; Y93.K1 Activity, walking an animal; Y92.9 Unspecified place or not applicable; Z72.0 Tobacco use; F41.8 Other specified anxiety disorders; F31.70 Bipolar disorder, currently in remission, most recent episode unspecified; G89.29 Other chronic pain; K21.9 Gastro-esophageal reflux disease without esophagitis; E03.9 Hypothyroidism, unspecified; I38 Endocarditis, valve unspecified

== ENCOUNTER 2017-02-24 22:36 | Emergency (ER) | payer MEDICARE, OTHER ==
[2017-02-24] MEDS ORDERED: HYDROcodone/ACETAMINOPHEN 1 EACH TABLET PO ONE (22:59)
[2017-02-24] MEDS ORDERED: HYDROcodone/ACETAMINOPHEN 1 EACH TABLET ONE (23:02)
[2017-02-25] MEDS ORDERED: diphenhydrAMINE HCL 50 MG/ML VIAL IV ONE (00:07)
[2017-02-25] MEDS ORDERED: PROMETHAZINE HCL 25 MG/ML AMPUL IM ONE (00:07)
[2017-02-25] MEDS ORDERED: METOCLOPRAMIDE HCL 5 MG/ML VIAL IV ONE (00:07)
[2017-02-25] MEDS ORDERED: METOCLOPRAMIDE HCL 5 MG/ML VIAL ONE (00:16)
[2017-02-25] MEDS ORDERED: diphenhydrAMINE HCL 50 MG/ML VIAL ONE (00:16)
[2017-02-25] MEDS ORDERED: PROMETHAZINE HCL 25 MG/ML AMPUL ONE (00:17)
--- NOTE | 2017-02-25 00:21 | ERNOTE ---
Lower Extremity HPI - Narrative Date of Service: 02/25/17 - General Lower Extremities Pain: ankle: right Source: patient Exam Limitations: no limitations - Immun/Allergies/Home Medications Immunizations: IMMUNIZATION HX Immunizations Up to Date Yes History of Influenza Vaccine Yes Hx Pneumococcal Vaccination Yes Allergies/Adverse Reactions: Allergies Allergy/AdvReac Type Severity Reaction Status Date / Time Sulfa (Sulfonamide Allergy Intermediate FACE Verified 02/24/17 22:47 Antibiotics) SWELLING Iodinated Contrast Media - AdvReac Intermediate SEVERE Verified 02/24/17 22:47 Oral and ITCHING [Iodinated Contrast Media - IV Dye] ibuprofen AdvReac Mild Other Verified 02/24/17 22:47 methocarbamol AdvReac Mild RASH Verified 02/24/17 22:47 Home Medications: HOME MEDICATIONS Venlafaxine HCl [Effexor Xr] 150 mg PO DAILY 01/02/14 [Last Taken 03/05/14] Pantoprazole Sodium [Protonix] 40 mg PO DAILY 06/03/15 [Last Taken Unknown] Torsemide [Demadex] 40 mg PO DAILY 06/03/15 [Last Taken Unknown] Aspirin 81 mg PO DAILY 01/03/16 [Last Taken Unknown] Levothyroxine Sodium [Tirosint] 75 mcg PO DAILY 11/12/16 [Last Taken Unknown] Metoprolol Succinate 25 mg PO DAILY 11/28/16 [Last Taken Unknown] ALPRAZolam [Xanax] 1 mg PO QID 02/18/17 [Last Taken Unknown] - History of Present Illness Narrative: While in the kitchen twisted right ankle and subsequently has been only able to partial weight bear on the right ankle due to pain. Occurred: just prior to arrival Location of Incident: home Method of Injury: Reports: twisted Modifying Factors - (Improves): Reports: rest Modifying Factors - (Worsens): Reports: movement Associated Symptoms: Reports: unable to bear weight Other Injuries: Reports: none Review of Systems - Review of Systems Constitutional: Present: no symptoms reported EYE: Present: no symptoms reported ENT: Present: no symptoms reported Respiratory: Present: no symptoms reported Cardiology: Present: no symptoms reported Gastrointestinal/Abdominal: Present: no symptoms reported Genitourinary: Present: no symptoms reported Musculoskeletal: Present: no symptoms reported Skin: Present: no symptoms reported Neurological: Present: no symptoms reported Endocrine: Present: no symptoms reported Hematologic/Lymphatic: Present: no symptoms reported - Patient's Past Medical History Patient History - Medical: Anxiety, Bipolar, Chronic Pain, Depression, GERD, Hypothyroidism, Osteoarthritis, Other Patient History - Cardiac/Respiratory: CHF, Valvular Heart Disease Patient History - Cancer: No Hx of Cancer Patient History - Surgical Procedures: Hysterectomy, Total Hip Replacement, T & A, Other Patient History - Other: None - Family History Father Family History - Medical: Family History - Cardiac/Respiratory: COPD, Other Mother Family History - Medical: Family History - Cardiac/Respiratory: COPD, CVA/Stroke, TIA, Other - Social History Living Situations: home Abuse History: No History of abuse Psych History: Hx of Anxiety, Hx of Depression, Hx of Bipolar Disorder, Current tx/ever been on anti-depressants or anti-anxiety meds Does anyone smoke in the home?: Yes Smoking Status: Current every day smoker Alcohol Use: none Drug Use: none - Immunizations Immunizations Up to Date: Yes Hx Pneumococcal Vaccination: Yes History of Influenza Vaccine: Yes Physical Exam - Physical Exam General Appearance: Present: no apparent distress Eye Exam: Normal inspection: bilateral Ears, Nose, Throat: Present: normal ENT inspection Neck: Present: normal inspection Respiratory: Present: no respiratory distress Cardiovascular/Chest: Present: regular rate, rhythm Gastrointestinal/Abdominal: Present: nondistended Back Exam: Present: normal inspection Extremity Exam: Present: other - right ankle- no swelling. Minimal tenderness at the distal fibula. No instability. Minimal tenderness at the lateral malleolus. ED Progress - Vital Signs Vital Signs: Vital Signs 02/24/17 22:42 Temperature 36.2 C L Pulse Rate 76 Respiratory 18 Rate Blood Pressure 139/82 O2 Sat by Pulse 99 Oximetry - X-Ray X-Ray #1 X-Ray: ankle - old lateral malleolar fracture. Interpretation: Interp. by me, Reviewed by me - Progress/Reassessment Chief Complaint: Ankle Injury/ Pain Progress:: Pain free at discharge Progress Note-Subjective: 02/25/17 00:20 During the ED stay she developed a migraine headache that was addressed with a migraine cocktail of medications. 02/25/17 00:38 The migraine has resolved now ready to leave. Departure Clinical Impression: Ankle sprain - Departure Disposition: Home self-care Condition: Fair Instructions: Ankle Sprain Print Language: Sinhala Additional Instructions: Tylenol for pain. You can also use ice packs to relieve pain. Referrals: Jesus Griffith, PAC [[facility]] -
--- OUTSIDE RECORDS SUMMARY | 2017-02-25 00:25 | XMS REPORT | Continuity of Care Document ---
:1965 Author Organization [employer] [place] [address] Care Team Providers Name Role Phone Keanu Caceres Primary Care Provider [phone] Source Comments This disclosure is being made pursuant to the [employer] program and maynot contain all information available regarding this patient.[employer] Active Allergies and Adverse Reactions Allergen Noted [...]
[2017-02-25 02:09] VITALS: BP 134/68
== END 2017-02-25 00:45 | disposition home or self-care (01) ==
LOC: ER 22:36
PROC: 2W3JX1Z Immobilization of Right Finger using Splint (ICD-10-PCS; principal; 2017-02-24)
DX: S93.401A Sprain of unspecified ligament of right ankle, initial encounter (principal); X58.XXXA Exposure to other specified factors, initial encounter; Y93.9 Activity, unspecified; Y92.000 Kitchen of unspecified non-institutional (private) residence as the place of occurrence of the external cause; F41.8 Other specified anxiety disorders; F31.70 Bipolar disorder, currently in remission, most recent episode unspecified; G89.29 Other chronic pain; K21.9 Gastro-esophageal reflux disease without esophagitis; E03.9 Hypothyroidism, unspecified; I50.9 Heart failure, unspecified; Z72.0 Tobacco use; G43.909 Migraine, unspecified, not intractable, without status migrainosus

== ENCOUNTER 2017-05-10 06:00 | Emergency (ER) | payer MEDICARE, OTHER ==
[2017-05-10 06:06] VITALS: BP 133/91
[2017-05-10] MEDS ORDERED: KETOROLAC TROMETHAMINE 60 MG/2 ML VIAL IM ONE ×2 (06:21→06:22)
--- NOTE | 2017-05-10 06:28 | ERNOTE ---
Medical Problem HPI - General Chief Complaint: Laceration Time Seen by Provider: 05/10/17 06:15 Source: patient Exam Limitations: no limitations - Immun/Allergies/Home Medications Immunizations: IMMUNIZATION HX Immunizations Up to Date Yes History of Influenza Vaccine Yes Hx Pneumococcal Vaccination Yes Allergies/Adverse Reactions: Allergies Sulfa (Sulfonamide Antibiotics) Allergy (Intermediate, Verified 05/10/17 06:06) FACE SWELLING Iodinated Contrast- Oral and IV Dye [Iodinated Contrast Media - IV Dye] Adverse Reaction (Intermediate, Verified 05/10/17 06:06) SEVERE ITCHING ibuprofen Adverse Reaction (Mild, Verified 05/10/17 06:06) Other 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 methocarbamol Adverse Reaction (Mild, Verified 05/10/17 06:06) RASH Home Medications: HOME MEDICATIONS Venlafaxine HCl [Effexor Xr] 150 mg PO DAILY 01/02/14 [Last Taken 03/05/14] Pantoprazole Sodium [Protonix] 40 mg PO DAILY 06/03/15 [Last Taken Unknown] Torsemide [Demadex] 40 mg PO DAILY 06/03/15 [Last Taken Unknown] Aspirin 81 mg PO DAILY 01/03/16 [Last Taken Unknown] Levothyroxine Sodium [Tirosint] 75 mcg PO DAILY 11/12/16 [Last Taken Unknown] Metoprolol Succinate 25 mg PO DAILY 11/28/16 [Last Taken Unknown] ALPRAZolam [Xanax] 1 mg PO QID 02/18/17 [Last Taken Unknown] - History of Present History Narrative: Pt sustained a laceration between her right 3rd and 4th toes cutting fruit this morning. She was seen in [place] ED and laceration was stitched but she states they didn't give her anything for the pain and is requesting pain medication Timing: constant Severity: moderate Modifying Factors - (Worsens): Present: movement Review of Systems - Review of Systems Constitutional: Absent: recent illness, fever Musculoskeletal: Present: See HPI, other - foot pain. Absent: joint swelling Skin: Present: See HPI Neurological: Absent: numbness, tingling - Patient's Past Medical History Patient History - Medical: Anxiety, Bipolar, Chronic Pain, Depression, GERD, Hypothyroidism, Osteoarthritis, Other Patient History - Cardiac/Respiratory: CHF, Valvular Heart Disease Patient History - Cancer: No Hx of Cancer Patient History - Surgical Procedures: Hysterectomy, Total Hip Replacement, T & A, Other Patient History - Other: None - Family History Father Family History - Medical: Family History - Cardiac/Respiratory: COPD, Other Mother Family History - Medical: Family History - Cardiac/Respiratory: COPD, CVA/Stroke, TIA, Other - Social History Living Situations: home Abuse History: No History of abuse Psych History: Hx of Anxiety, Hx of Depression, Hx of Bipolar Disorder, Current tx/ever been on anti-depressants or anti-anxiety meds Does anyone smoke in the home?: Yes Smoking Status: Current every day smoker Have you smoked in the past 12 months: Yes Do you dip or chew tobacco: No Alcohol Use: none Drug Use: none - Immunizations Immunizations Up to Date: Yes Hx Pneumococcal Vaccination: Yes History of Influenza Vaccine: Yes Physical Exam - Physical Exam General Appearance: Present: wd/wn, alert, mild distress, irritable Head Exam: Present: normal inspection, no evidence of injury Neck: Present: normal inspection, supple, full range of motion Respiratory: Present: no respiratory distress, no accessory muscle use Extremity Exam: Present: normal except - - right 3rd and 4th toes appear normal except sutured laceration between them. Tendon function intact, N/V intact to all toes, no other injuries noted.. Absent: bony tenderness Neurological Exam: Present: alert, oriented, no motor/sensory deficits Skin Exam: Present: other - laceration between 3rd and 4th toes of right foot. Very well sutured. ED Progress - Vital Signs Patient's Vital Signs:: I have reviewed the patient's vital signs. Vital Signs: Vital Signs 05/10/17 06:02 Temperature 36.0 C L Pulse Rate 69 Respiratory 12 Rate Blood Pressure 133/91 O2 Sat by Pulse 99 Oximetry - Progress/Reassessment Chief Complaint: Laceration Progress:: Unchanged Progress Note-Subjective: 05/10/17 06:38 I asked the patient about her ibuprofen allergy and she states that she was told not to take ibuprofen due to cardiac rhythm problems. She states she has has toradol and has not had a problem. toradol 60mg IM given. I suggested aleve 1 tab BID to patient as naproxen is considered the most cardiac safe NSAID. Suggested she take it for only a few days. Departure - Departure Clinical Impression: Laceration, Foot pain, right Disposition: Home self-care Condition: Good Instructions: Laceration Care, Adult, [id number] Additional Instructions: you may take tylenol every 4 hours as needed for pain or Aleve twice a day for pain. Elevate foot whenever possible. Use ice 15 minutes every 2-3 hours also.
== END 2017-05-10 06:35 | disposition home or self-care (01) ==
LOC: ER 06:00
DX: S91.311D Laceration without foreign body, right foot, subsequent encounter (principal); W26.0XXD Contact with knife, subsequent encounter; Y92.9 Unspecified place or not applicable; Y99.9 Unspecified external cause status; M79.671 Pain in right foot; F17.200 Nicotine dependence, unspecified, uncomplicated

== ENCOUNTER 2017-07-09 21:00 | Emergency (ER) | payer MEDICARE, OTHER ==
[2017-07-09 21:42] LABS: Hematocrit 36.2 % (37.0-47.0); Hemoglobin 12.2 gm/dL (12.5-16.0); Mean Cell Volume 90.7 fl (78-100); Mean Corpuscular Hemoglobin 30.6 pg (27-31); Mean Corpuscular Hgb Conc 33.7 g/dl (32-36); Mean Platelet Volume 9.8 fl (6.0-9.5); Neutrophil # 5.6 K/mm3 (1.3-6.0); Neutrophil % 62.1 % (42-75.0); Platelet Count 277 K/mm3 (150-450); Red Blood Count 3.99 M/mm3 (4.2-5.4); Red Cell Distribution Width 12.9 % (11.5-14.0)
--- NOTE | 2017-07-09 21:48 | ERNOTE ---
Lower Extremity HPI - Narrative Date of Service: 07/09/17 - General Time Seen by Provider: 07/09/17 22:49 Source: patient Exam Limitations: no limitations - Immun/Allergies/Home Medications Immunizations: IMMUNIZATION HX Immunizations Up to Date Yes History of Influenza Vaccine Yes Hx Pneumococcal Vaccination Yes Allergies/Adverse Reactions: Allergies Allergy/AdvReac Type Severity Reaction Status Date / Time Sulfa (Sulfonamide Allergy Intermediate FACE Verified 05/10/17 06:06 Antibiotics) SWELLING Iodinated Contrast- Oral and AdvReac Intermediate SEVERE Verified 05/10/17 06:06 IV Dye ITCHING [Iodinated Contrast Media - IV Dye] ibuprofen AdvReac Mild Other Verified 05/10/17 06:06 methocarbamol AdvReac Mild RASH Verified 05/10/17 06:06 Home Medications: HOME MEDICATIONS Venlafaxine HCl [Effexor Xr] 150 mg PO DAILY 01/02/14 [Last Taken 03/05/14] Pantoprazole Sodium [Protonix] 40 mg PO DAILY 06/03/15 [Last Taken Unknown] Torsemide [Demadex] 40 mg PO DAILY 06/03/15 [Last Taken Unknown] Aspirin 81 mg PO DAILY 01/03/16 [Last Taken Unknown] Levothyroxine Sodium [Tirosint] 75 mcg PO DAILY 11/12/16 [Last Taken Unknown] Metoprolol Succinate 25 mg PO DAILY 11/28/16 [Last Taken Unknown] ALPRAZolam [Xanax] 1 mg PO QID 02/18/17 [Last Taken Unknown] - History of Present Illness Narrative: Patient presents to our emergency room for right-sided flank pain and also chronic bilateral lower extremity pain. She states she fell 3 weeks ago and she has had pain since then. Occurred: other - H and has had her chronic lower extremity pain for her than 6 months. Review of Systems - Review of Systems Constitutional: Present: other - patient complains of chronic pain in both lower extremities. EYE: Present: no symptoms reported ENT: Present: no symptoms reported Respiratory: Present: no symptoms reported Cardiology: Present: no symptoms reported Gastrointestinal/Abdominal: Present: See HPI, other - patient complains of pain in the right flank area and Musculoskeletal: Present: See HPI - Patient's Past Medical History Patient History - Medical: Anxiety, Bipolar, Chronic Pain, Depression, GERD, Hypothyroidism, Osteoarthritis, Other Patient History - Cardiac/Respiratory: CHF, Valvular Heart Disease, Other Patient History - Cancer: No Hx of Cancer Patient History - Surgical Procedures: Hysterectomy, Total Hip Replacement, T & A, Other Patient History - Other: None LMP (females 10-50): hysterectomy - Family History Father Family History - Medical: Family History - Cardiac/Respiratory: COPD, Other Mother Family History - Medical: Family History - Cardiac/Respiratory: COPD, CVA/Stroke, TIA, Other - Social History Living Situations: home Abuse History: No History of abuse Psych History: Hx of Anxiety, Hx of Depression, Hx of Bipolar Disorder, Current tx/ever been on anti-depressants or anti-anxiety meds Smoking Status: Current every day smoker Have you smoked in the past 12 months: Yes Do you dip or chew tobacco: No Alcohol Use: none Drug Use: none - Immunizations Immunizations Up to Date: Yes Hx Pneumococcal Vaccination: Yes History of Influenza Vaccine: Yes Physical Exam - Physical Exam General Appearance: Present: wd/wn, alert, no apparent distress - the patient's exam is somewhat confusing she comes into the emergency room supported by her as if she cannot walk. However within 15 minutes of being here she gets up without the assistance of anyone walks without any signs of pain moaning and holding to any part of her body she walks out to the parking lot gets her cigarettes and comes back in without any grimacing or acting as if she is in pain. Head Exam: Present: normal inspection, no evidence of injury Respiratory: Present: no respiratory distress, normal breath sounds, no accessory muscle use, chest nontender, lungs clear Cardiovascular/Chest: Present: regular rate, rhythm, no murmur, normal peripheral pulses Gastrointestinal/Abdominal: Present: tenderness - patient does have tenderness upon palpation of the belly and it's diffusely in the lower abdominal regions. There is no rebound tendernes asked where her pain as she points to her right flank region. ED Progress - Results and Orders Patient's Lab Results:: I have reviewed the patient's lab results. - Vital Signs Patient's Vital Signs:: I have reviewed the patient's vital signs. Vital Signs: Vital Signs 07/09/17 21:13 Temperature 36.6 C Pulse Rate 85 Respiratory 14 Rate Blood Pressure 129/87 O2 Sat by Pulse 98 Oximetry - Progress/Reassessment Chief Complaint: Lower Extremity Pain/ Injury Plan - Plan Plan: This patient presents with a confusing clinical picture as she walks and as if she is in a lot of pain however when she runs out to get her cigarettes she does not act like she is in pain. Additionally the patient asks for pain medication on several occasions. This examiner ordered some baseline per her blood tests for CBC is essentially within normal limits without any leukocytosis she did have some red blood cells on her urinalysis a CT of the abdomen and pelvis was ordered to rule out stone. However at this state the patient decided to walk out AGAINST MEDICAL ADVICE. The patient changed her mind and return to the ER. This patient repeatedly asked for pain medication however this examiner's not comfortable giving any kind of pain medication until I know exactly what I am treating. Since vitals remained stable during her hospital stay in our ER. CT is negative for nephrolithiasis patient was offered Toradol 60 mg IM she is stable and appropriate to be discharged Departure Clinical Impression: Chronic pain Qualifiers: Chronic pain type: other chronic pain Qualified Code(s): G89.29 - Other chronic pain - Departure Disposition: Home self-care Condition: Good Instructions: Chronic Pain
[2017-07-09 21:57] LABS: Albumin * 4.1 gm/dl (3.4-5.0); Anion Gap 13.5 mmol/L (6.8-13.8); BUN/Creatinine Ratio 18.7 (9.0-21.6); Bilirubin, Total 0.3 mg/dL (0.0-1.1); Ca. Corrected For Albumin 8.7 mg/dL (8.4-10.2); Calcium * 9.1 mg/dL (7.9-10.9); Potassium 3.5 mmol/L (3.4-4.6); Total Protein 7.9 gm/dL (6.2-8.2)
[2017-07-09 22:09] LABS: Urine Bilirubin Negative (NEGATIVE); Urine Blood Negative /ul (NEGATIVE); Urine Ketone Negative (NEGATIVE); Urine Nitrite Negative (NEGATIVE); Urine Protein Negative (NEGATIVE); Urine Urobilinogen Normal (NORMAL); Urine pH 5.5 pH (5.0-7.0)
[2017-07-09 22:20] LABS: Urine Amorphous Sediment Few - 1+ (NONE-FEW); Urine Appearance Clear; Urine Bacteria None Seen; Urine Color Pale Yellow; Urine WBC 0-5 /hpf (0-5)
[2017-07-10 00:28] VITALS: BP 142/78
[2017-07-10] MEDS ORDERED: KETOROLAC TROMETHAMINE 60 MG/2 ML VIAL IM ONE ×2 (00:52→00:54)
== END 2017-07-10 01:05 | disposition home or self-care (01) ==
LOC: ER 21:00
DX: G89.29 Other chronic pain (principal); F41.8 Other specified anxiety disorders; F31.70 Bipolar disorder, currently in remission, most recent episode unspecified; K21.9 Gastro-esophageal reflux disease without esophagitis; E03.9 Hypothyroidism, unspecified; M19.90 Unspecified osteoarthritis, unspecified site; I50.9 Heart failure, unspecified; F17.200 Nicotine dependence, unspecified, uncomplicated